=== PATIENT | male | born 1950 | race Caucasian/White ===

== ENCOUNTER → 2017-05-02 | Outpatient (CLI) | payer OTHER ==
[~2017-05-02] MED LIST: ASPIR LOW81 MG PO; CLOTRIMAZOLE AN1 CRE T; DOC-Q-LACE100 MG PO; FISH OIL 10001000 MG PO; GABAPENTIN100 MG PO; GLIPIZIDE5 MG PO; GRALISE300 M1 PO; LANTUS100 U/ML SQ; LISINOPRIL5 MG PO; LOVASTATIN10 MG PO; METFORMIN1000 MG PO; MOTRIN800 MG PO; PRILOSEC40 MG PO; VICTOZA6 MG/ML SC; ZANTAC150 MG PO
== END | disposition home or self-care (01) ==
LOC: LAB 10:45
DX: R53.83 Other fatigue (principal); R79.89 Other specified abnormal findings of blood chemistry

== ENCOUNTER 2017-07-30 20:15 | Inpatient (IN) | payer OTHER ==
[~2017-07-30] VITALS: Ht 177.8 cm; Wt 115.7 kg
[2017-07-30 20:18] VITALS: BP 128/82
[2017-07-30] MEDS ORDERED: INVOKANA300 M1 PO (20:19)
[2017-07-30] MEDS ORDERED: LOPRESSOR HCT1 EACH PO (20:19)
[2017-07-30] MEDS ORDERED: FEROSUL325 MG PO (20:20)
[2017-07-30] MEDS ORDERED: GLIPIZIDE10 M2 PO (20:21)
[2017-07-30] MEDS ORDERED: SIMVASTATIN20 MG PO (20:22)
[2017-07-30] MEDS ORDERED: LISINOPRIL2.5 MG PO (20:23)
[2017-07-30 21:00] VITALS: BP 144/87
[2017-07-30 21:28] LABS: BASO % 0.3 % (0.0-1.0); EOS # 0.2 10*3/uL (0.0-0.4); EOS % 1.4 % (1.0-4.0); HEMATOCRIT 54.1 % (42.0-52.0); HEMOGLOBIN 17.8 g/dl (14.0-18.0); LYMPH # 1.5 10*3/uL (1.3-4.4); LYMPH % 12.6 % (27.0-41.0); MEAN CELL VOLUME 89.6 fl (80.0-94.0); MEAN CORPUSCULAR HGB 29.5 pg (27.0-31.0); MEAN CORPUSCULAR HGB CONC 32.9 g/dl (33.0-37.0); MEAN PLATELET VOLUME 10.5 fl (9.6-12.3); MONO % 8.4 % (3.0-9.0); PLATELET COUNT AUTOMATED 211 10*3/uL (130-400); RED BLOOD COUNT 6.04 10*6/uL (4.50-5.90); RED CELL DISTRI WIDTH 17.5 % (0-14.5); WHITE BLOOD COUNT 11.6 10*3/uL (4.8-10.8)
[2017-07-30 21:50] LABS: ALBUMIN 4.2 gm/dl (3.1-4.5); ALKALINE PHOSPHATASE 48 U/L (45-117); BUN 21 mg/dl (7-24); CHLORIDE 97 mmol/L (98-107); CREATININE 1.48 mg/dL (0.70-1.30); LIPASE 155 U/L (73-393); POTASSIUM 3.4 mmol/L (3.5-5.1); SGOT/AST 15 IU/L (3-35); SGPT/ALT 32 U/L (12-78); SODIUM 134 mmol/L (136-145); TOTAL PROTEIN 8.2 gm/dL (6.4-8.2); TROPONIN I < 0.015 ng/ml (<0.045)
[2017-07-30 22:10] LABS: BILIRUBIN NEGATIVE (NEGATIVE); BLOOD NEGATIVE (NEGATIVE); CLARITY SL CLOUDY (CLEAR); COLOR YELLOW (YELLOW); GLUCOSE 3+ (NEGATIVE); KETONE TRACE (NEGATIVE); LEUKO ESTERASE NEGATIVE (NEGATIVE); NITRITE NEGATIVE (NEGATIVE); PH 5.5 (5.0-9.0); SPECIFIC GRAVITY 1.015 (1.005-1.030); UROBILINOGEN 0.2 E.U./dl (0.2-1.0)
[2017-07-30 22:18] LABS: BACTERIA 1+; COARSE GRANULAR CAST 0-2; EPITHELIAL CELLS 0-2; RBC 0-2 rbc/hpf (0-2)
[2017-07-30 22:30] VITALS: BP 138/79
[2017-07-30 23:30] VITALS: BP 129/75
[2017-07-31] VITALS: BP 128/80
[2017-07-31 01:59] VITALS: BP 144/88
[2017-07-31] MEDS ORDERED: CETIRIZINE HCL10 MG PO (02:32)
[2017-07-31 05:55] LABS: BASO % 0.4 % (0.0-1.0); EOS # 0.2 10*3/uL (0.0-0.4); HEMATOCRIT 49.6 % (42.0-52.0); HEMOGLOBIN 16.6 g/dl (14.0-18.0); LYMPH # 1.6 10*3/uL (1.3-4.4); LYMPH % 16.9 % (27.0-41.0); MEAN CELL VOLUME 90.7 fl (80.0-94.0); MEAN CORPUSCULAR HGB 30.3 pg (27.0-31.0); MEAN CORPUSCULAR HGB CONC 33.5 g/dl (33.0-37.0); MEAN PLATELET VOLUME 10.2 fl (9.6-12.3); MONO % 10.5 % (3.0-9.0); NEUT # 6.6 10*3/uL (2.3-7.9); NEUT % 69.9 % (47.0-73.0); PLATELET COUNT AUTOMATED 177 10*3/uL (130-400); RED BLOOD COUNT 5.47 10*6/uL (4.50-5.90); RED CELL DISTRI WIDTH 17.5 % (0-14.5); WHITE BLOOD COUNT 9.5 10*3/uL (4.8-10.8)
[2017-07-31 06:13] LABS: BUN 20 mg/dl (7-24); CHLORIDE 103 mmol/L (98-107); CHOLESTEROL 110 mg/dL (<200); CREATININE 1.33 mg/dL (0.70-1.30); HDL CHOLESTEROL 19 mg/dl (40-60); LDL CHOLESTEROL 29 mg/dL (9-159); PHOSPHOROUS 2.3 mg/dL (2.5-4.9); POTASSIUM 3.1 mmol/L (3.5-5.1); SODIUM 140 mmol/L (136-145); TRIGLYCERIDES 308 mg/dl (<150); VLDL CHOLESTEROL 62 mg/dL (6-40)
[2017-07-31 07:00] LABS: VITAMIN D, 25-HYDROXY 8.6 ng/mL (30-100)
[2017-07-31 08:00] VITALS: BP 106/64
[2017-07-31 12:00] VITALS: BP 119/62
[2017-07-31 16:00] VITALS: BP 127/69
[2017-07-31 19:54] VITALS: BP 129/63
[2017-08-01 00:04] VITALS: BP 120/51
[2017-08-01 07:24] LABS: BASO % 0.5 % (0.0-1.0); EOS # 0.3 10*3/uL (0.0-0.4); EOS % 3.4 % (1.0-4.0); HEMATOCRIT 48.5 % (42.0-52.0); HEMOGLOBIN 16.2 g/dl (14.0-18.0); LYMPH # 1.3 10*3/uL (1.3-4.4); LYMPH % 17.6 % (27.0-41.0); MEAN CELL VOLUME 91.3 fl (80.0-94.0); MEAN CORPUSCULAR HGB 30.5 pg (27.0-31.0); MEAN CORPUSCULAR HGB CONC 33.4 g/dl (33.0-37.0); MEAN PLATELET VOLUME 10.4 fl (9.6-12.3); MONO # 0.7 10*3/uL (0.1-1.0); MONO % 9.4 % (3.0-9.0); NEUT # 5.2 10*3/uL (2.3-7.9); NEUT % 68.7 % (47.0-73.0); PLATELET COUNT AUTOMATED 177 10*3/uL (130-400); RED BLOOD COUNT 5.31 10*6/uL (4.50-5.90); RED CELL DISTRI WIDTH 17.4 % (0-14.5); WHITE BLOOD COUNT 7.6 10*3/uL (4.8-10.8)
[2017-08-01 07:47] LABS: BUN 15 mg/dl (7-24); CHLORIDE 104 mmol/L (98-107); CREATININE 1.15 mg/dL (0.70-1.30); POTASSIUM 3.8 mmol/L (3.5-5.1); SODIUM 139 mmol/L (136-145)
[2017-08-01 08:00] VITALS: BP 128/76
[2017-08-01 12:00] VITALS: BP 138/64
[2017-08-01 16:00] VITALS: BP 160/80
[2017-08-01 20:00] VITALS: BP 161/75
[2017-08-02] VITALS: BP 153/71
[2017-08-02 07:10] LABS: BUN 16 mg/dl (7-24); CHLORIDE 103 mmol/L (98-107); CREATININE 1.25 mg/dL (0.70-1.30); SODIUM 137 mmol/L (136-145)
[2017-08-02 08:00] VITALS: BP 125/59
== END 2017-08-02 11:06 | disposition home or self-care (01) | DRG 371 ==
LOC: ED 20:15 → 4E 07-31 00:56 → EDHOLD 07-31 00:56 → 4E 07-31 01:02
PROVIDERS: Emergency Medicine Emergency Medical Services; Internal Medicine; Student in an Organized Health Care Education/Training Program
DX: A04.9 Bacterial intestinal infection, unspecified (principal); N17.0 Acute kidney failure with tubular necrosis; N18.2 Chronic kidney disease, stage 2 (mild); E87.6 Hypokalemia; E11.65 Type 2 diabetes mellitus with hyperglycemia; I25.10 Atherosclerotic heart disease of native coronary artery without angina pectoris; E11.69 Type 2 diabetes mellitus with other specified complication; E11.49 Type 2 diabetes mellitus with other diabetic neurological complication; D72.810 Lymphocytopenia; E87.8 Other disorders of electrolyte and fluid balance, not elsewhere classified; I12.9 Hypertensive chronic kidney disease with stage 1 through stage 4 chronic kidney disease, or unspecified chronic kidney disease; E11.22 Type 2 diabetes mellitus with diabetic chronic kidney disease; K21.9 Gastro-esophageal reflux disease without esophagitis; E66.9 Obesity, unspecified; E78.5 Hyperlipidemia, unspecified; Z79.899 Other long term (current) drug therapy; Z90.49 Acquired absence of other specified parts of digestive tract; Z95.1 Presence of aortocoronary bypass graft; Z95.5 Presence of coronary angioplasty implant and graft; Z80.6 Family history of leukemia; Z71.6 Tobacco abuse counseling; Z72.0 Tobacco use; Z82.49 Family history of ischemic heart disease and other diseases of the circulatory system; Z83.3 Family history of diabetes mellitus; Z82.3 Family history of stroke; Z88.8 Allergy status to other drugs, medicaments and biological substances; Z79.82 Long term (current) use of aspirin; Z87.820 Personal history of traumatic brain injury; Z68.36 Body mass index [BMI] 36.0-36.9, adult

== ENCOUNTER 2017-08-23 06:53 | Inpatient (IN) | payer OTHER ==
[2017-08-23] VITALS (10 sets, daily range): BP systolic 94–113; BP diastolic 51–68
[~2017-08-23] VITALS: Ht 180.3 cm; Wt 110.4 kg
--- NOTE | ~2017-08-23 | CON ---
[place], [place] REPORT OF CONSULTATION NAME[id number] UNIT #: [id number] ROOM: 403 DOCTOR: MARGARITA LANZA MDLORELEIITALIA BIRTHDATE: [birth year] DOS: 08/23/2017 HISTORY OF PRESENT ILLNESS: A 67-year-old patient who has presented with chief complaint of abdominal pain, epigastric distress, diarrhea, dark stool and suspected with GI bleed. The patient has had a panel of blood work done. His CBC shows white blood cell was 19,000, H and H of 16 and 48, platelet count normal. Comprehensive metabolic panel: BUN and creatinine 15 and 1.5. Electrolyte, potassium of 3.0 has been addressed. Liver function tests normal. Magnesium 1.8, has been addressed. CT scan of the abdomen and pelvis has been done, suspected for mild colitis diffusely involved left colon. Air space disease in the lungs. Lactic acid was normal. Urinalysis 3+ glucose and trace of blood was noticed. PAST MEDICAL HISTORY: Associated with chronic renal insufficiency, coronary artery disease, diabetes history, diarrhea, gastroesophageal reflux, hypertension, hyperlipidemia. PAST SURGICAL HISTORY: Coronary stent, hernia repair, coronary artery bypass graft, appendectomy. SOCIAL HISTORY: Nicotine dependency. FAMILY HISTORY: Noncontributory. ALLERGIES: CLOPIDOGREL. MEDICATIONS: List at home was reviewed including aspirin and omeprazole. Other medications reviewed. REVIEW OF SYSTEMS: HEENT: Denies double vision, blurred vision. RESPIRATORY: Denies acute shortness of breath. CARDIOVASCULAR: Denies acute chest pain. DIGESTIVE SYSTEM: Nausea, dark stool, diarrhea, abdominal pain, epigastric distress, history of GERD. PHYSICAL EXAMINATION: VITAL SIGNS: Stable. HEENT: Head normocephalic, nontraumatic. Mouth and buccal mucosa benign. NECK: Supple, no thyromegaly, no cervical lymphadenopathy. CHEST: Symmetric anatomy, equal expansion. No wheeze, no rhonchi. COPD pattern. HEART: Normal sinus rhythm, no gallop or murmur. ABDOMEN: Soft. No hepato-organomegaly. Bowel sounds present. No pulsatile mass. EXTREMITIES: No cyanosis, no pedal edema. NEUROLOGIC: Alert, oriented to time, place, person. IMPRESSION: Abdominal pain, nausea, vomiting, diarrhea. [place], [place] REPORT OF CONSULTATION NAME: ALBERTO BENEDICT UNIT #: [id number] ROOM: 403 DOCTOR: MYLA FLYNN,KIRSTEN BIRTHDATE: [birth year] OTHER ADJUNCTIVE DIAGNOSES: As outlined above. The patient has the history of bowel perforation in 1978 that has been recognized. The patient has had diarrhea for one month. The stool is being assessed. Other adjunctive diagnoses, renal insufficiency, coronary artery disease, hypertension, diabetes mellitus and hyperlipidemia all has been recognized. Workup in progress. CT scan of the abdomen noticed. We are going to check to assure there is no evidence of colitis as well. We are going to address with endoscopy of upper tract ruling out diabetic gastroparesis and its involvement as well. Thank you again for kind referral. KIRSTEN LANZA MD CM:CONSTR:REPORT OF CONSULTATION 1532 08/24/17 0210 interface
--- NOTE | ~2017-08-23 | O ---
[place], [place] OPERATIVE NOTE NAME: ALBERTO BENEDICT UNIT #: [id number] ROOM: 403 DOCTOR: KIRSTEN LANZA MD BIRTHDATE: [birth year] DOS: 08/23/2017 GASTROENDOSCOPIC REPORT INDICATIONS: The patient has presented with chief complaint of abdominal pain, diarrhea for one month, undergoing investigation. The patient's stool was sent for ova and parasite and enteric pathogen. Labs and records and CT scan has been reviewed. CT scan has been consistent with unspecific colitis as well. PROCEDURE: Today's procedure part of investigation is panendoscopy and colonoscopy. PREMEDICATION: Versed and Diprivan. SCOPE: Olympus forward-viewing gastroscope Q10 video. REPORT: After putting the patient in left lateral position and application of lubricant to the scope, the scope was introduced. Thereafter, under direct visualization, advanced through the length of esophagus without difficulty. 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 Small hiatal hernia was noticed. Gastric pouch was entered. Gastritis seen. Antral biopsy obtained. Duodenal bulb, second and third part within normal limits. The patient extubated, tolerated the procedure well. IMPRESSION: Gastritis, short segment Sanders esophagus, status post biopsy. PLAN AND DISCUSSION: We are going to proceed with colonoscopy. GASTROENDOSCOPIC REPORT INDICATIONS: The patient has presented with abdominal pain and diarrhea. PROCEDURE: Today's procedure part of investigation is colonoscopy plus biopsy. PREMEDICATION: Versed and Diprivan. SCOPE: Olympus folding colonoscope 10L video. REPORT: After putting the patient in left lateral position and application of lubricant to the scope, the scope was introduced. Thereafter, under direct visualization, I advanced the length of colon without difficulty. Nonspecific mild colitis throughout the length of colon was appreciated. Ascending colon contains large volume of stool. Biopsies randomly obtained. The patient was extubated, tolerated procedure well. IMPRESSION: Mild nonspecific colitis, status post biopsy, status post stool suctioning and recovery for ova and parasite and enteric pathogens and C. diff [place], [place] OPERATIVE NOTE NAME: ALBERTO BENEDICT UNIT #: [id number] ROOM: 403 DOCTOR: KIRSTEN LANZA MD BIRTHDATE: [birth year] and clinical reassessment. DIET: Regular. KIRSTEN LANZA MD CM:SHAYNAORD:OPERATIVE NOTE 01 41 KIRSTEN LANZA MD 08/23/171940 interface
[~2017-08-23 06:53] MED LIST changes: +CETIRIZINE HCL10 MG PO; +FEROSUL325 MG PO; +GLIPIZIDE10 M2 PO; +INVOKANA300 M1 PO; +LANTUS SOL100 UNIT/1 SQ; -LANTUS100 U/ML SQ; +LISINOPRIL2.5 MG PO; +LOPRESSOR HCT1 EACH PO; +SIMVASTATIN20 MG PO; +VICTOZA 2-0.6 MG/0.1 SQ; -VICTOZA6 MG/ML SC
[2017-08-23 08:02] LABS: HEMATOCRIT 48.5 % (42.0-52.0); HEMOGLOBIN 16.8 g/dl (14.0-18.0); MEAN CELL VOLUME 87.7 fl (80.0-94.0); MEAN CORPUSCULAR HGB 30.4 pg (27.0-31.0); MEAN CORPUSCULAR HGB CONC 34.6 g/dl (33.0-37.0); MEAN PLATELET VOLUME 9.5 fl (9.6-12.3); PLATELET COUNT AUTOMATED 240 10*3/uL (130-400); RED BLOOD COUNT 5.53 10*6/uL (4.50-5.90); RED CELL DISTRI WIDTH 14.2 % (0-14.5)
[2017-08-23 08:18] LABS: ALBUMIN 3.3 gm/dl (3.1-4.5); CREATININE 1.53 mg/dL (0.70-1.30); TOTAL PROTEIN 7.4 gm/dL (6.4-8.2)
[2017-08-23 08:21] LABS: ATYPICAL LYMPHS 1 % (0-0); TOTAL CELLS COUNTED 100 #CELLS
[2017-08-23 08:22] LABS: PLATELET SUFFICIENCY NORMAL (NORMAL)
[2017-08-23 09:40] LABS: BILIRUBIN NEGATIVE (NEGATIVE); BLOOD TRACE-INTACT (NEGATIVE); CLARITY SL CLOUDY (CLEAR); COLOR YELLOW (YELLOW); GLUCOSE 3+ (NEGATIVE); KETONE NEGATIVE (NEGATIVE); LEUKO ESTERASE NEGATIVE (NEGATIVE); NITRITE NEGATIVE (NEGATIVE); PH 6.5 (5.0-9.0); SPECIFIC GRAVITY <= 1.005 (1.005-1.030); UROBILINOGEN 0.2 E.U./dl (0.2-1.0)
[2017-08-23 09:52] LABS: BACTERIA TRACE; RBC 0-2 rbc/hpf (0-2); WBC 0-2 wbc/hpf (0-5)
[2017-08-24] VITALS: BP 101/63
[2017-08-24 07:14] LABS: BASO # 0.1 10*3/uL (0.0-0.1); BASO % 0.6 % (0.0-1.0); EOS # 0.3 10*3/uL (0.0-0.4); EOS % 2.6 % (1.0-4.0); HEMATOCRIT 45.4 % (42.0-52.0); HEMOGLOBIN 15.9 g/dl (14.0-18.0); LYMPH # 1.1 10*3/uL (1.3-4.4); MEAN CELL VOLUME 88.3 fl (80.0-94.0); MEAN CORPUSCULAR HGB 30.9 pg (27.0-31.0); MONO # 1.1 10*3/uL (0.1-1.0); MONO % 10.8 % (3.0-9.0); NEUT # 7.4 10*3/uL (2.3-7.9); NEUT % 74.5 % (47.0-73.0); PLATELET COUNT AUTOMATED 209 10*3/uL (130-400); RED BLOOD COUNT 5.14 10*6/uL (4.50-5.90); RED CELL DISTRI WIDTH 14.2 % (0-14.5); WHITE BLOOD COUNT 9.9 10*3/uL (4.8-10.8)
[2017-08-24 07:34] LABS: BUN 13 mg/dl (7-24); CHLORIDE 100 mmol/L (98-107); CHOLESTEROL 94 mg/dL (<200); CREATININE 1.14 mg/dL (0.70-1.30); PHOSPHOROUS 2.3 mg/dL (2.5-4.9); POTASSIUM 3.1 mmol/L (3.5-5.1); SGOT/AST 17 IU/L (3-35); SGPT/ALT 31 U/L (12-78); SODIUM 135 mmol/L (136-145)
[2017-08-24 07:41] LABS: ALKALINE PHOSPHATASE 65 U/L (45-117); HDL CHOLESTEROL 19 mg/dl (40-60); LDL CHOLESTEROL 49 mg/dL (9-159); TOTAL PROTEIN 6.8 gm/dL (6.4-8.2); TRIGLYCERIDES 129 mg/dl (<150); VLDL CHOLESTEROL 26 mg/dL (6-40)
[2017-08-24 08:00] VITALS: BP 108/55
[2017-08-24 08:23] LABS: VITAMIN D, 25-HYDROXY 19.4 ng/mL (30-100)
[2017-08-24 12:00] VITALS: BP 91/68
[2017-08-24 16:00] VITALS: BP 98/50
[2017-08-24 20:00] VITALS: BP 113/56
[2017-08-25] VITALS: BP 120/59
[2017-08-25 07:35] LABS: BASO # 0.1 10*3/uL (0.0-0.1); BASO % 0.5 % (0.0-1.0); EOS # 0.3 10*3/uL (0.0-0.4); EOS % 3.4 % (1.0-4.0); HEMATOCRIT 44.9 % (42.0-52.0); HEMOGLOBIN 14.9 g/dl (14.0-18.0); LYMPH # 1.2 10*3/uL (1.3-4.4); LYMPH % 12.9 % (27.0-41.0); MEAN CELL VOLUME 89.4 fl (80.0-94.0); MEAN CORPUSCULAR HGB 29.7 pg (27.0-31.0); MEAN CORPUSCULAR HGB CONC 33.2 g/dl (33.0-37.0); MEAN PLATELET VOLUME 10.3 fl (9.6-12.3); MONO % 10.8 % (3.0-9.0); NEUT # 6.6 10*3/uL (2.3-7.9); PLATELET COUNT AUTOMATED 227 10*3/uL (130-400); RED BLOOD COUNT 5.02 10*6/uL (4.50-5.90); RED CELL DISTRI WIDTH 14.1 % (0-14.5); WHITE BLOOD COUNT 9.1 10*3/uL (4.8-10.8)
[2017-08-25 08:00] VITALS: BP 128/64
[2017-08-25 08:01] LABS: BUN 14 mg/dl (7-24); CHLORIDE 104 mmol/L (98-107); CREATININE 1.28 mg/dL (0.70-1.30); POTASSIUM 3.1 mmol/L (3.5-5.1); SODIUM 140 mmol/L (136-145)
[2017-08-25] MEDS ORDERED: VITAMIN D-32000 UNIT PO (08:14)
[2017-08-25 12:00] VITALS: BP 97/69
[2017-08-25 16:00] VITALS: BP 115/58
[2017-08-25 20:00] VITALS: BP 92/64
[2017-08-26] VITALS: BP 105/45
[2017-08-26 06:21] LABS: BASO # 0.1 10*3/uL (0.0-0.1); EOS # 0.4 10*3/uL (0.0-0.4); EOS % 4.3 % (1.0-4.0); HEMATOCRIT 44.3 % (42.0-52.0); HEMOGLOBIN 15.1 g/dl (14.0-18.0); LYMPH # 1.3 10*3/uL (1.3-4.4); LYMPH % 15.8 % (27.0-41.0); MEAN CELL VOLUME 89.9 fl (80.0-94.0); MEAN CORPUSCULAR HGB 30.6 pg (27.0-31.0); MEAN CORPUSCULAR HGB CONC 34.1 g/dl (33.0-37.0); MEAN PLATELET VOLUME 10.5 fl (9.6-12.3); MONO % 11.3 % (3.0-9.0); NEUT # 5.7 10*3/uL (2.3-7.9); NEUT % 67.2 % (47.0-73.0); PLATELET COUNT AUTOMATED 232 10*3/uL (130-400); RED BLOOD COUNT 4.93 10*6/uL (4.50-5.90); RED CELL DISTRI WIDTH 14.1 % (0-14.5); WHITE BLOOD COUNT 8.4 10*3/uL (4.8-10.8)
[2017-08-26 06:45] LABS: ALBUMIN 2.9 gm/dl (3.1-4.5); ALKALINE PHOSPHATASE 67 U/L (45-117); BUN 13 mg/dl (7-24); CHLORIDE 104 mmol/L (98-107); POTASSIUM 3.2 mmol/L (3.5-5.1); SGOT/AST 19 IU/L (3-35); SGPT/ALT 34 U/L (12-78); SODIUM 140 mmol/L (136-145); TOTAL PROTEIN 6.4 gm/dL (6.4-8.2)
[2017-08-26 08:00] VITALS: BP 134/86
[2017-08-26 12:00] VITALS: BP 121/64
[2017-08-26] MEDS ORDERED: VANCOMYCIN250 MG/2.5 PO (12:35)
[2017-08-26 16:00] VITALS: BP 122/56
[2017-08-26 20:00] VITALS: BP 148/72
[2017-08-27] VITALS: BP 137/79
[2017-08-27 08:00] VITALS: BP 119/60
[2017-08-27 09:55] LABS: BUN 11 mg/dl (7-24); CHLORIDE 106 mmol/L (98-107)
[2017-08-27 10:06] LABS: SODIUM 139 mmol/L (136-145)
[2017-08-27 10:09] LABS: POTASSIUM 4.4 mmol/L (3.5-5.1)
[2017-08-27] MEDS ORDERED: LACTINEX 0.2 MG1 TAB PO (11:51)
[2017-08-27] MEDS ORDERED: DOXYCYCLINE MO100 M1 PO (11:51)
[2017-08-27] MEDS ORDERED: KLOR-CON M2020 ME1 PO (11:51)
== END 2017-08-27 14:53 | disposition home or self-care (01) | DRG 371 ==
LOC: ED 06:53 → 4E 10:46 → EDHOLD 10:46 → 4E 11:09
PROVIDERS: Emergency Medicine; Hospitalist; Internal Medicine
PROC: 0DB68ZX Excision of Stomach, Via Natural or Artificial Opening Endoscopic, Diagnostic (ICD-10-PCS; principal; 2017-08-23)
PROC: 0DBK8ZX Excision of Ascending Colon, Via Natural or Artificial Opening Endoscopic, Diagnostic (ICD-10-PCS; principal; 2017-08-23)
PROC: 0DB58ZX Excision of Esophagus, Via Natural or Artificial Opening Endoscopic, Diagnostic (ICD-10-PCS; principal; 2017-08-23)
DX: A04.72 Enterocolitis due to Clostridium difficile, not specified as recurrent (principal); N17.0 Acute kidney failure with tubular necrosis; J18.1 Lobar pneumonia, unspecified organism; I25.810 Atherosclerosis of coronary artery bypass graft(s) without angina pectoris; E83.39 Other disorders of phosphorus metabolism; K29.71 Gastritis, unspecified, with bleeding; E87.1 Hypo-osmolality and hyponatremia; E11.22 Type 2 diabetes mellitus with diabetic chronic kidney disease; E11.42 Type 2 diabetes mellitus with diabetic polyneuropathy; E11.65 Type 2 diabetes mellitus with hyperglycemia; E87.8 Other disorders of electrolyte and fluid balance, not elsewhere classified; E87.6 Hypokalemia; N18.2 Chronic kidney disease, stage 2 (mild); F17.210 Nicotine dependence, cigarettes, uncomplicated; K21.9 Gastro-esophageal reflux disease without esophagitis; D72.9 Disorder of white blood cells, unspecified; E78.2 Mixed hyperlipidemia; K44.9 Diaphragmatic hernia without obstruction or gangrene; K22.70 Barrett's esophagus without dysplasia; I12.9 Hypertensive chronic kidney disease with stage 1 through stage 4 chronic kidney disease, or unspecified chronic kidney disease; E11.69 Type 2 diabetes mellitus with other specified complication; E66.9 Obesity, unspecified; Z68.36 Body mass index [BMI] 36.0-36.9, adult; Z71.6 Tobacco abuse counseling; Z88.8 Allergy status to other drugs, medicaments and biological substances; Z79.899 Other long term (current) drug therapy; Z90.49 Acquired absence of other specified parts of digestive tract; Z95.1 Presence of aortocoronary bypass graft; Z95.5 Presence of coronary angioplasty implant and graft; Z82.3 Family history of stroke; Z83.3 Family history of diabetes mellitus; Z82.49 Family history of ischemic heart disease and other diseases of the circulatory system; Z79.82 Long term (current) use of aspirin

== ENCOUNTER → 2019-04-01 | Outpatient (CLI) | payer OTHER ==
[~2019-04-01] MED LIST changes: +DOXYCYCLINE MO100 M1 PO; +KLOR-CON M2020 ME1 PO; +LACTINEX 0.2 MG1 TAB PO; +VANCOMYCIN250 MG/2.5 PO; +VITAMIN D-32000 UNIT PO
== END | disposition home or self-care (01) ==
LOC: RAD 12:50
DX: M20.12 Hallux valgus (acquired), left foot (principal)

== ENCOUNTER → 2019-06-19 | Outpatient (CLI) | payer OTHER | END | disposition home or self-care (01) | LOC: US 13:59 | DX: K76.0 Fatty (change of) liver, not elsewhere classified (principal); M16.11 Unilateral primary osteoarthritis, right hip; M16.12 Unilateral primary osteoarthritis, left hip ==

== ENCOUNTER 2019-11-02 21:39 | Inpatient (IN) | payer OTHER ==
[~2019-11-02] VITALS: Ht 180.3 cm; Wt 121.7 kg
[~2019-11-02 21:39] MED LIST changes: +PRILOSEC20 M1 PO; -PRILOSEC40 MG PO
[2019-11-02 21:43] VITALS: BP 148/82
[2019-11-02 21:57] LABS: BASO # 0.1 10*3/uL (0.0-0.1); BASO % 0.7 % (0.0-1.0); EOS # 0.3 10*3/uL (0.0-0.4); HEMATOCRIT 44.4 % (42.0-52.0); LYMPH # 1.7 10*3/uL (1.3-4.4); LYMPH % 16.4 % (27.0-41.0); MEAN CELL VOLUME 83.8 fl (80.0-94.0); MEAN CORPUSCULAR HGB 27.2 pg (27.0-31.0); MEAN CORPUSCULAR HGB CONC 32.4 g/dl (33.0-37.0); MEAN PLATELET VOLUME 10.5 fl (9.6-12.3); MONO # 1.1 10*3/uL (0.1-1.0); MONO % 10.2 % (3.0-9.0); NEUT # 7.3 10*3/uL (2.3-7.9); NEUT % 69.1 % (47.0-73.0); PLATELET COUNT AUTOMATED 242 10*3/uL (130-400); RED CELL DISTRI WIDTH 16.8 % (0-14.5); WHITE BLOOD COUNT 10.5 10*3/uL (4.8-10.8)
[2019-11-02 22:07] LABS: ACT PARTIAL THROMBO TIME 36.7 SECONDS (20.0-32.1); INTERNATIONAL NORM RATIO 0.9 (2.0-3.5)
[2019-11-02 22:15] LABS: ALBUMIN 3.5 gm/dl (3.1-4.5); ALKALINE PHOSPHATASE 49 U/L (45-117); BUN 29 mg/dl (7-24); CHLORIDE 102 mmol/L (98-107); CREATININE 1.44 mg/dL (0.70-1.30); POTASSIUM 3.5 mmol/L (3.5-5.1); SGOT/AST 15 IU/L (3-35); SGPT/ALT 30 U/L (12-78); SODIUM 135 mmol/L (136-145); TOTAL PROTEIN 7.4 gm/dL (6.4-8.2)
[2019-11-02 22:16] LABS: TROPONIN I < 0.015 ng/ml (<0.045)
[2019-11-02 23:45] VITALS: BP 129/65
--- NOTE | 2019-11-02 23:45 | NUR ---
A 69, admitted to , under the services of EMILI Nicholson DO with a diagnosis of CHEST PAIN. Chief complaint is CHEST PAIN. Patient arrived via stretcher from ER. Monitor applied. Initial assessment completed. Vital signs taken and recorded. EMILI NICHOLSON DO notified of admission to the unit. Orders received. See assessment for past medical history, medications and allergies. Patient and/or family oriented to unit. [facility] visitation policy reviewed. Clothing/patient valuable form completed. LILIAN HUTCHINSON
[2019-11-02 23:57] VITALS: BP 134/78
[2019-11-03] MEDS ORDERED: TRULICITY1.5 MG/0.5 SC (00:06)
[2019-11-03] MEDS ORDERED: DULCOLAX STOOL100 M1 PO (00:07)
--- NOTE | 2019-11-03 00:17 | NUR ---
MED REC COMPLETED WITH MEDS FROM HOME AND PATIENT. DENIES WOUNDS AT THIS TIME
--- NOTE | 2019-11-03 00:19 | NUR ---
DR HARDY AWARE OF PATIENT REQUESTING HOME NEURONTIN. ORDER TAKEN TO START IT
--- NOTE | 2019-11-03 00:51 | NUR ---
DR WARD'S ANSWERING SERVICE AWARE OF CONSULT
--- NOTE | 2019-11-03 01:12 | NUR ---
CALLED DR. HARDY MADE AWARE OF CRITICAL TROPONIN.
--- NOTE | 2019-11-03 01:36 | NUR ---
PATIENT CONTINUES TO DENY CHEST PAIN AND SHORTNESS OF BREATH AT THIS TIME
[2019-11-03 04:07] LABS: BASO # 0.1 10*3/uL (0.0-0.1); BASO % 0.5 % (0.0-1.0); EOS # 0.3 10*3/uL (0.0-0.4); EOS % 2.8 % (1.0-4.0); LYMPH # 1.8 10*3/uL (1.3-4.4); LYMPH % 18.2 % (27.0-41.0); MEAN CORPUSCULAR HGB 26.9 pg (27.0-31.0); MEAN PLATELET VOLUME 10.5 fl (9.6-12.3); MONO % 10.3 % (3.0-9.0); NEUT # 6.5 10*3/uL (2.3-7.9); NEUT % 67.7 % (47.0-73.0); PLATELET COUNT AUTOMATED 265 10*3/uL (130-400); RED BLOOD COUNT 5.36 10*6/uL (4.50-5.90); RED CELL DISTRI WIDTH 16.9 % (0-14.5); WHITE BLOOD COUNT 9.7 10*3/uL (4.8-10.8)
[2019-11-03 04:20] LABS: BUN 28 mg/dl (7-24); CHLORIDE 105 mmol/L (98-107); CREATININE 1.24 mg/dL (0.70-1.30); POTASSIUM 3.3 mmol/L (3.5-5.1); SODIUM 138 mmol/L (136-145)
[2019-11-03 04:25] LABS: CHOLESTEROL 122 mg/dL (<200); HDL CHOLESTEROL 17 mg/dl (40-60); TRIGLYCERIDES 404 mg/dl (<150)
--- NOTE | 2019-11-03 04:29 | NUR ---
DR HARDY AWARE OF CRITICAL TROPONIN. STATES HE WILL LET DR WARD KNOW
[2019-11-03 07:03] LABS: VITAMIN D, 25-HYDROXY 19.2 ng/mL (30-100)
--- NOTE | 2019-11-03 07:15 | NUR ---
MEDS FROM HOME DELIVERED TO PHARMACY
[2019-11-03 08:00] VITALS: BP 108/62
--- NOTE | 2019-11-03 09:30 | NUR ---
Handle Turner in to talk to patient. Patient states lives at home with alone. There are no steps in the home. Physician: parrish olea [facility]acy: [facility] Home health services: none Patient's level of ADLs: INDEPENDENT Patient has working utilities: all working DME: cane Follow-up physician's appointment after d/c: will be made by hospitalist nurse director upon discharge Does patient want to access PORTAL?: no Discharge plan discussed with patient, he states he lives in [facility] apartments alone, he lives on the 8th floor and uses the elevator. he has a cane if needed. he is independent in adls and ambulation, drives, he states he will return home when medically stable. discussed with him [facility] and educated him on the services they provide. he declined any home services at this time, case management will follow. patient stated his family will transport home when he is discharged KERMIT PALOMINO
--- NOTE | 2019-11-03 10:00 | NUR ---
AM MEDS HELD DUE TO NPO STATUS. STILL WAITING ON CARDIOLOGY TO SEE PATIENT.
[2019-11-03 12:00] VITALS: BP 109/65
--- NOTE | 2019-11-03 14:00 | NUR ---
CARDIOLOGY IN TO SEE PATIENT AND INFORMED OF STRESS TEST FOR TOMORROW. PATIENT AWARE OF NPO AFTER MIDNIGHT TONIGHT.
[2019-11-03 16:00] VITALS: BP 127/54
[2019-11-03 20:00] VITALS: BP 109/52
--- NOTE | 2019-11-03 20:31 | NUR ---
DR HARDY AWARE OF BLOOD PRESSURE AND HEART RATE. STATES TO GIVE THE SCHEDULED LOPRESSOR
--- NOTE | 2019-11-03 21:28 | NUR ---
BLOOD SUGAR CHECK 194
[2019-11-04] VITALS: BP 117/61
[2019-11-04 06:18] LABS: BASO # 0.1 10*3/uL (0.0-0.1); BASO % 0.6 % (0.0-1.0); EOS # 0.3 10*3/uL (0.0-0.4); EOS % 3.4 % (1.0-4.0); HEMATOCRIT 40.9 % (42.0-52.0); LYMPH # 1.7 10*3/uL (1.3-4.4); LYMPH % 20.9 % (27.0-41.0); MEAN CELL VOLUME 84.3 fl (80.0-94.0); MEAN CORPUSCULAR HGB 26.4 pg (27.0-31.0); MEAN CORPUSCULAR HGB CONC 31.3 g/dl (33.0-37.0); MEAN PLATELET VOLUME 10.7 fl (9.6-12.3); MONO # 0.9 10*3/uL (0.1-1.0); MONO % 11.6 % (3.0-9.0); PLATELET COUNT AUTOMATED 209 10*3/uL (130-400); RED BLOOD COUNT 4.85 10*6/uL (4.50-5.90); RED CELL DISTRI WIDTH 16.7 % (0-14.5); WHITE BLOOD COUNT 7.9 10*3/uL (4.8-10.8)
[2019-11-04 06:26] LABS: BUN 23 mg/dl (7-24); CHLORIDE 106 mmol/L (98-107); CREATININE 1.27 mg/dL (0.70-1.30); POTASSIUM 3.9 mmol/L (3.5-5.1); SODIUM 138 mmol/L (136-145)
[2019-11-04 08:00] VITALS: BP 102/52; BP 122/51
--- NOTE | 2019-11-04 08:00 | NUR ---
PATIENT AWAKE & ALERT. NPO FOR STRESS TEST. PO MEDS HELD DUE TO NPO. DENIES ANY PERIODS OF CHEST PAIN THROUGHT THE NIGHT. LUNGS CLR/DIM T/O. DENIES NEEDS. CALL LIGHT IN REACH.
--- NOTE | 2019-11-04 09:00 | NUR ---
case management visits with patient, he is having a stress test today to determine treatment plan, patient will return home when medically stable and denies any home needs, case management will follow
--- NOTE | 2019-11-04 09:56 | NUR ---
Nutritional Support Services Note: Pt is NPO at this time for a stress test. Will follow. Philomena Luna Rdn Ld
--- NOTE | 2019-11-04 10:13 | NUR ---
INFORMED CONSENT SIGNED FOR LEXISCAN STRESS TEST WITH DR. WARD. RESTING EKG NSR, HR 61, BP 112/54. PULSE OX 98% AND LUNGS CLEAR BILATERALLY. COMPLETED ONE MINUTE OF LEXISCAN PROTOCOL RECEIVING LEXISCAN 0.4MG OVER 10 SECONDS. NO ARRHYTHMIAS OR ST CHANGES NOTED. PT C/O FEELING HOT. LAST RECOVERY HR 77, BP 112/64. WAITING NUCLEAR SCANNING IN STABLE CONDITION.
[2019-11-04 12:00] VITALS: BP 124/58
--- NOTE | 2019-11-04 15:00 | NUR ---
ASSUMED CARE FROM CHERIE ROCHE. PT SITTING IN CHAIR WATCHING TV. VOICES NO COMPLATINS. CALL LIGHT
[2019-11-04 16:00] VITALS: BP 123/55
--- NOTE | 2019-11-04 17:00 | NUR ---
PT EATING DINNER AT THIS TIME. NO S/S OF DISTRESS, CALL LIGHT IN REACH
[2019-11-04 20:00] VITALS: BP 123/55
[2019-11-05] VITALS: BP 127/55
[2019-11-05 06:53] LABS: BASO % 0.6 % (0.0-1.0); EOS # 0.2 10*3/uL (0.0-0.4); EOS % 3.5 % (1.0-4.0); HEMATOCRIT 40.9 % (42.0-52.0); LYMPH # 1.5 10*3/uL (1.3-4.4); LYMPH % 22.8 % (27.0-41.0); MEAN CELL VOLUME 84.2 fl (80.0-94.0); MEAN CORPUSCULAR HGB 26.7 pg (27.0-31.0); MEAN CORPUSCULAR HGB CONC 31.8 g/dl (33.0-37.0); MEAN PLATELET VOLUME 11.5 fl (9.6-12.3); MONO # 0.8 10*3/uL (0.1-1.0); MONO % 12.3 % (3.0-9.0); NEUT % 60.3 % (47.0-73.0); PLATELET COUNT AUTOMATED 191 10*3/uL (130-400); RED BLOOD COUNT 4.86 10*6/uL (4.50-5.90); RED CELL DISTRI WIDTH 16.5 % (0-14.5); WHITE BLOOD COUNT 6.6 10*3/uL (4.8-10.8)
[2019-11-05 06:59] LABS: BUN 18 mg/dl (7-24); CHLORIDE 107 mmol/L (98-107); CREATININE 1.11 mg/dL (0.70-1.30); SODIUM 138 mmol/L (136-145)
[2019-11-05 08:00] VITALS: BP 132/68
--- NOTE | 2019-11-05 08:43 | NUR ---
DREW GIVEN FOR COMPLAINTS OF GENERALIZED ARTHRITIS. CALL LIGHT IN REACH. WILL MONITOR.
--- NOTE | 2019-11-05 09:00 | NUR ---
case management visits with patient, he states he is being discharged to home and denies any home needs, reminded him to fill out paperwork given to him from [facility] and mail or bring back to the hospital, patient has not home needs
--- NOTE | 2019-11-05 09:32 | NUR ---
PER PT, NORCO WAS EFFECTIVE.
[2019-11-05] MEDS ORDERED: IMDUR SA30 MG PO (10:22)
[2019-11-05] MEDS ORDERED: VITAMIN D350 MC2 PO (10:22)
--- NOTE | 2019-11-05 11:00 | NUR ---
Nutritional Support Services Note: Cardiac diet as ordered. Has no questions at this time. Encouraged healthy eating and increased fruit and vegetables. Will follow as needed. Philomena Luna Rdn Ld
[2019-11-05 12:00] VITALS: BP 105/54
--- NOTE | 2019-11-05 12:36 | NUR ---
Discharge instructions reviewed with patient/family. Patient receptive and verbalizes understanding. Follow-up care arranged. Written instructions given to patient/family. JOSE CARLOS WILLIAM
== END 2019-11-05 12:36 | disposition home or self-care (01) | DRG 280 ==
LOC: ED 21:39 → EDHOLD 23:11 → 4E 23:11
PROVIDERS: Emergency Medicine; Internal Medicine; ADMIT Family Medicine
PROC: 3E073KZ Introduction of Other Diagnostic Substance into Coronary Artery, Percutaneous Approach (ICD-10-PCS; principal; 2019-11-04)
PROC: 4A02XM4 Measurement of Cardiac Total Activity, External Approach (ICD-10-PCS; principal; 2019-11-04)
DX: I21.4 Non-ST elevation (NSTEMI) myocardial infarction (principal); N17.0 Acute kidney failure with tubular necrosis; E87.1 Hypo-osmolality and hyponatremia; E11.42 Type 2 diabetes mellitus with diabetic polyneuropathy; E11.65 Type 2 diabetes mellitus with hyperglycemia; N18.2 Chronic kidney disease, stage 2 (mild); F17.210 Nicotine dependence, cigarettes, uncomplicated; I25.700 Atherosclerosis of coronary artery bypass graft(s), unspecified, with unstable angina pectoris; K21.9 Gastro-esophageal reflux disease without esophagitis; E11.69 Type 2 diabetes mellitus with other specified complication; I12.9 Hypertensive chronic kidney disease with stage 1 through stage 4 chronic kidney disease, or unspecified chronic kidney disease; E78.5 Hyperlipidemia, unspecified; E66.01 Morbid (severe) obesity due to excess calories; D64.9 Anemia, unspecified; E11.22 Type 2 diabetes mellitus with diabetic chronic kidney disease; E53.8 Deficiency of other specified B group vitamins; Z95.5 Presence of coronary angioplasty implant and graft; Z95.1 Presence of aortocoronary bypass graft; Z71.6 Tobacco abuse counseling; Z68.37 Body mass index [BMI] 37.0-37.9, adult; Z88.8 Allergy status to other drugs, medicaments and biological substances; Z79.899 Other long term (current) drug therapy; Z79.4 Long term (current) use of insulin; Z82.49 Family history of ischemic heart disease and other diseases of the circulatory system; Z83.3 Family history of diabetes mellitus; Z82.3 Family history of stroke; Z79.82 Long term (current) use of aspirin

== ENCOUNTER 2020-04-01 21:10 | Observation (INO) | payer OTHER ==
[~2020-04-01] VITALS: Ht 180.3 cm; Wt 125.3 kg
[~2020-04-01 21:10] MED LIST changes: +DULCOLAX STOOL100 M1 PO; -GRALISE300 M1 PO; +IMDUR SA30 MG PO; +NEURONTIN300 MG PO; +OMEPRAZOLE40 MG PO; -PRILOSEC20 M1 PO; +TRULICITY1.5 MG/0.5 SC; +VITAMIN D350 MC2 PO
[2020-04-01 21:16] VITALS: BP 131/63
[2020-04-01 21:31] LABS: BASO # 0.1 10*3/uL (0.0-0.1); BASO % 0.5 % (0.0-1.0); EOS # 0.3 10*3/uL (0.0-0.4); EOS % 2.5 % (1.0-4.0); HEMATOCRIT 42.9 % (42.0-52.0); LYMPH # 1.3 10*3/uL (1.3-4.4); LYMPH % 13.2 % (27.0-41.0); MEAN CELL VOLUME 82.7 fl (80.0-94.0); MEAN CORPUSCULAR HGB 24.5 pg (27.0-31.0); MEAN CORPUSCULAR HGB CONC 29.6 g/dl (33.0-37.0); MEAN PLATELET VOLUME 10.4 fl (9.6-12.3); MONO # 0.9 10*3/uL (0.1-1.0); MONO % 9.3 % (3.0-9.0); NEUT # 7.3 10*3/uL (2.3-7.9); PLATELET COUNT AUTOMATED 242 10*3/uL (130-400); RED BLOOD COUNT 5.19 10*6/uL (4.50-5.90); RED CELL DISTRI WIDTH 18.4 % (0-14.5); WHITE BLOOD COUNT 9.8 10*3/uL (4.8-10.8)
[2020-04-01 21:48] LABS: ALBUMIN 3.5 gm/dl (3.1-4.5); CREATININE 1.77 mg/dL (0.70-1.30); TOTAL PROTEIN 7.3 gm/dL (6.4-8.2)
[2020-04-01 21:49] LABS: TROPONIN I 0.026 ng/ml (<0.045)
[2020-04-01 23:17] VITALS: BP 133/59
[2020-04-01 23:46] VITALS: BP 128/61
[2020-04-02 01:15] VITALS: BP 136/61
[2020-04-02] MEDS ORDERED: IMDUR SA60 M1 PO (02:37)
[2020-04-02 06:21] LABS: BASO # 0.1 10*3/uL (0.0-0.1); BASO % 0.7 % (0.0-1.0); EOS # 0.3 10*3/uL (0.0-0.4); EOS % 3.7 % (1.0-4.0); HEMATOCRIT 44.5 % (42.0-52.0); LYMPH # 1.5 10*3/uL (1.3-4.4); LYMPH % 17.1 % (27.0-41.0); MEAN CELL VOLUME 83.6 fl (80.0-94.0); MEAN CORPUSCULAR HGB 24.6 pg (27.0-31.0); MEAN CORPUSCULAR HGB CONC 29.4 g/dl (33.0-37.0); MEAN PLATELET VOLUME 10.8 fl (9.6-12.3); MONO # 0.8 10*3/uL (0.1-1.0); MONO % 9.3 % (3.0-9.0); NEUT # 5.9 10*3/uL (2.3-7.9); NEUT % 68.6 % (47.0-73.0); PLATELET COUNT AUTOMATED 237 10*3/uL (130-400); RED BLOOD COUNT 5.32 10*6/uL (4.50-5.90); RED CELL DISTRI WIDTH 18.6 % (0-14.5); WHITE BLOOD COUNT 8.5 10*3/uL (4.8-10.8)
[2020-04-02 06:24] LABS: ALBUMIN 3.4 gm/dl (3.1-4.5); CREATININE 1.59 mg/dL (0.70-1.30)
[2020-04-02 06:26] LABS: TOTAL PROTEIN 7.2 gm/dL (6.4-8.2)
[2020-04-02 08:00] VITALS: BP 118/69
[2020-04-02 12:00] VITALS: BP 111/51
[2020-04-02 14:00] VITALS: BP 111/51
[2020-04-02 16:00] VITALS: BP 120/63
[2020-04-02 20:00] VITALS: BP 129/60
[2020-04-03] VITALS: BP 117/42
[2020-04-03 07:49] LABS: BUN 24 mg/dl (7-24); CHLORIDE 107 mmol/L (98-107); CREATININE 1.03 mg/dL (0.70-1.30); POTASSIUM 4.4 mmol/L (3.5-5.1); SODIUM 139 mmol/L (136-145)
[2020-04-03 08:00] VITALS: BP 120/78
[2020-04-03 12:00] VITALS: BP 129/65
[2020-04-03 16:00] VITALS: BP 124/53
[2020-04-03 20:00] VITALS: BP 140/63
[2020-04-04] VITALS: BP 143/68
[2020-04-04 06:08] LABS: BASO % 0.5 % (0.0-1.0); EOS # 0.2 10*3/uL (0.0-0.4); EOS % 2.7 % (1.0-4.0); HEMATOCRIT 42.8 % (42.0-52.0); LYMPH # 1.3 10*3/uL (1.3-4.4); LYMPH % 15.6 % (27.0-41.0); MEAN CELL VOLUME 83.4 fl (80.0-94.0); MEAN CORPUSCULAR HGB 24.8 pg (27.0-31.0); MEAN CORPUSCULAR HGB CONC 29.7 g/dl (33.0-37.0); MEAN PLATELET VOLUME 11.2 fl (9.6-12.3); MONO # 0.8 10*3/uL (0.1-1.0); MONO % 9.9 % (3.0-9.0); NEUT % 70.9 % (47.0-73.0); PLATELET COUNT AUTOMATED 207 10*3/uL (130-400); RED BLOOD COUNT 5.13 10*6/uL (4.50-5.90); RED CELL DISTRI WIDTH 18.1 % (0-14.5); WHITE BLOOD COUNT 8.5 10*3/uL (4.8-10.8)
[2020-04-04 06:28] LABS: ALBUMIN 3.5 gm/dl (3.1-4.5); BUN 20 mg/dl (7-24); CHLORIDE 107 mmol/L (98-107); POTASSIUM 4.2 mmol/L (3.5-5.1); SGOT/AST 18 IU/L (3-35); SGPT/ALT 32 U/L (12-78); SODIUM 137 mmol/L (136-145)
[2020-04-04 06:29] LABS: ALKALINE PHOSPHATASE 43 U/L (45-117); CREATININE 1.15 mg/dL (0.70-1.30)
[2020-04-04 08:00] VITALS: BP 126/56; BP 130/66
== END 2020-04-04 14:11 | disposition short-term general hospital (02) ==
LOC: ED 21:10 → EDHOLD 22:40 → 4E 04-02 01:06
PROVIDERS: Internal Medicine; Student in an Organized Health Care Education/Training Program; ADMIT Emergency Medicine; ATTEND Emergency Medicine
DX: R07.89 Other chest pain (principal); E11.65 Type 2 diabetes mellitus with hyperglycemia; N17.0 Acute kidney failure with tubular necrosis; D64.9 Anemia, unspecified; E87.8 Other disorders of electrolyte and fluid balance, not elsewhere classified; I25.10 Atherosclerotic heart disease of native coronary artery without angina pectoris; I10 Essential (primary) hypertension; E11.40 Type 2 diabetes mellitus with diabetic neuropathy, unspecified; E78.5 Hyperlipidemia, unspecified; K21.9 Gastro-esophageal reflux disease without esophagitis; F17.210 Nicotine dependence, cigarettes, uncomplicated

== ENCOUNTER 2020-04-30 01:15 | Inpatient (IN) | payer OTHER ==
[2020-04-30] VITALS (13 sets, daily range): BP systolic 104–122; BP diastolic 56–68
[~2020-04-30] VITALS: Ht 180.3 cm; Wt 134.5 kg
[~2020-04-30 01:15] MED LIST changes: +IMDUR SA60 M1 PO
[2020-04-30 01:36] LABS: BASO % 0.3 % (0.0-1.0); EOS % 0.3 % (1.0-4.0); HEMATOCRIT 24.6 % (42.0-52.0); LYMPH # 0.5 10*3/uL (1.3-4.4); LYMPH % 4.4 % (27.0-41.0); MEAN CELL VOLUME 87.5 fl (80.0-94.0); MEAN CORPUSCULAR HGB 24.9 pg (27.0-31.0); MEAN CORPUSCULAR HGB CONC 28.5 g/dl (33.0-37.0); MEAN PLATELET VOLUME 10.2 fl (9.6-12.3); MONO # 1.2 10*3/uL (0.1-1.0); MONO % 10.4 % (3.0-9.0); NEUT % 83.8 % (47.0-73.0); NUCLEATED RED BLOOD CELL 0.1 10*3/uL (0.0-0.0); NUCLEATED RED BLOOD CELL 0.8 % (0.0-0.0); PLATELET COUNT AUTOMATED 439 10*3/uL (130-400); RED BLOOD COUNT 2.81 10*6/uL (4.50-5.90); RED CELL DISTRI WIDTH 19.4 % (0-14.5); WHITE BLOOD COUNT 11.9 10*3/uL (4.8-10.8)
[2020-04-30 01:52] LABS: CREATININE 1.79 mg/dL (0.70-1.30); POTASSIUM 3.9 mmol/L (3.5-5.1); TOTAL PROTEIN 6.9 gm/dL (6.4-8.2)
[2020-04-30 01:55] LABS: TROPONIN I 0.202 ng/ml (<0.045)
[2020-04-30 05:44] LABS: TROPONIN I 0.17 ng/ml (<0.045)
[2020-04-30 05:52] LABS: ALBUMIN 3.1 gm/dl (3.1-4.5); CREATININE 1.85 mg/dL (0.70-1.30); POTASSIUM 4.1 mmol/L (3.5-5.1)
[2020-04-30 05:54] LABS: TOTAL PROTEIN 7.2 gm/dL (6.4-8.2)
[2020-04-30 06:01] LABS: BASO % 0.2 % (0.0-1.0); EOS % 0.1 % (1.0-4.0); HEMATOCRIT 25.4 % (42.0-52.0); LYMPH # 0.5 10*3/uL (1.3-4.4); LYMPH % 4.8 % (27.0-41.0); MEAN CELL VOLUME 89.8 fl (80.0-94.0); MEAN CORPUSCULAR HGB 24.7 pg (27.0-31.0); MEAN CORPUSCULAR HGB CONC 27.6 g/dl (33.0-37.0); MEAN PLATELET VOLUME 11.1 fl (9.6-12.3); MONO % 9.1 % (3.0-9.0); NEUT # 9.4 10*3/uL (2.3-7.9); NEUT % 85.3 % (47.0-73.0); NUCLEATED RED BLOOD CELL 0.1 10*3/uL (0.0-0.0); NUCLEATED RED BLOOD CELL 0.8 % (0.0-0.0); PLATELET COUNT AUTOMATED 411 10*3/uL (130-400); RED BLOOD COUNT 2.83 10*6/uL (4.50-5.90); RED CELL DISTRI WIDTH 19.7 % (0-14.5); WHITE BLOOD COUNT 11.1 10*3/uL (4.8-10.8)
--- NOTE | 2020-04-30 08:56 | NUR ---
CRITICAL LAB OF TROPONIN 0.[address] CABA
--- NOTE | 2020-04-30 09:10 | NUR ---
PT ASSESSMENT: PT CURRENTLY ON BIPAP WITH AVAPS MODE WITH [employer] VT OF 500 CC AND EPAP OF 8 . PT C/O SOB. MODE CHANGED TO S/T. IPAP INCREASED TO 18. VST INCREASED FROM APPROX 500 TO 600-700. PT STATED HE FELT LESS SOB. PT PULLED UP IN BED WITH BETTER POSITIONING WELL. BREAKFAST ARRIVED. PT TAKEN OFF OF BIPAP. PLACED ON 10 L HFNC TO EAT. SPO2 MAINTIANING AT 92% RESPS SLIGHTLY LABORED AND REGULAR. BIPAP ON S/B.
--- NOTE | 2020-04-30 10:00 | NUR ---
PT RECEIVING BLOOD TRANSFUSION PT RESTING IN BED NO COMPLAINTS BED IN LOWEST POSITION BED RAILS UP X 2 CALL LIGHT IN REACH
--- NOTE | 2020-04-30 10:15 | NUR ---
PT RESTING NO COMPLAINTS
--- NOTE | 2020-04-30 10:40 | NUR ---
PT ASYMPTOMATIC RATE INCREASED TO 240/HR
--- NOTE | 2020-04-30 11:41 | NUR ---
TRANSFUSION COMPLETE PT ASYMPTOMATIC
[2020-04-30 12:32] LABS: ABG BASE EXCESS 7.3 mmol/L (-2.0-2.0); ARTERIAL BLOOD GAS PH 7.468 (7.35-7.45)
--- NOTE | 2020-04-30 12:38 | NUR ---
PT BACK FROM CT
--- NOTE | 2020-04-30 12:53 | NUR ---
PT BGL 42 NO D50 IN [facility] NOTIFIED WILL CORRECT
--- NOTE | 2020-04-30 14:28 | NUR ---
DR SERRANO WISHED TO HAVE PT CHANGED TO ICU STATUS NOTIFIED DR HEDRICK TO [facility] WISHES THIS NURSE WAS NOTIFIED THAT THERE ARE NO ICU BED AND THAT PT WITH REMAIN EDHOLD STATUS
--- NOTE | 2020-04-30 17:12 | NUR ---
PT ACCIDENTILY REMOVED IV PT BGL 58 WILL ATTEMPT ANOTHER IV
--- NOTE | 2020-04-30 17:21 | NUR ---
VERBAL PERMISSION FROM PT WAS GIVEN TO DISCUSS PT CONDITION WITH FAMILY SPOKE WITH JOSE
--- NOTE | 2020-04-30 18:14 | NUR ---
PT USED BEDSIDE COMMODE PT WITH MODERATE BOWEL MOVEMENT THAT WAS SOFT AND DARK
--- NOTE | 2020-04-30 22:15 | NUR ---
PATIENT PLACED ON BIPAP 18/8, APPEARS TO BE TOLERATING WELL, WILL CONTINUE TO MONITOR.
[2020-05-01] VITALS (9 sets, daily range): BP systolic 100–160; BP diastolic 50–86
--- NOTE | 2020-05-01 01:34 | NUR ---
PT REQUESTING BGL CHECKED. PT BGL IS 153. NO COVERAGE ORDERED AT THIS TIME. WILL CONTINUE TO MONITOR.
--- NOTE | 2020-05-01 02:40 | NUR ---
PATIENT REMOVED FROM BIPAP PER HIS REQUEST. PLACED BACK ON 12 L/M HI GENA SPO2 97%.
--- NOTE | 2020-05-01 04:39 | NUR ---
MILTON WARD CONSULTED.
--- NOTE | 2020-05-01 04:40 | NUR ---
PATIENT PLACED BACK ON BIPAP 18/01. SPO2 96% PTIENT TOLERATING WELL.
[2020-05-01 05:45] LABS: ALBUMIN 2.9 gm/dl (3.1-4.5); CREATININE 1.78 mg/dL (0.70-1.30); POTASSIUM 3.7 mmol/L (3.5-5.1); TOTAL PROTEIN 6.8 gm/dL (6.4-8.2)
[2020-05-01 05:52] LABS: ABG BASE EXCESS 8.5 mmol/L (-2.0-2.0); ARTERIAL BLOOD GAS PH 7.491 (7.35-7.45)
[2020-05-01 06:05] LABS: BASO # 0.1 10*3/uL (0.0-0.1); BASO % 0.5 % (0.0-1.0); EOS # 0.1 10*3/uL (0.0-0.4); EOS % 1.2 % (1.0-4.0); LYMPH # 0.6 10*3/uL (1.3-4.4); MEAN CELL VOLUME 88.5 fl (80.0-94.0); MEAN CORPUSCULAR HGB 24.9 pg (27.0-31.0); MEAN CORPUSCULAR HGB CONC 28.1 g/dl (33.0-37.0); MEAN PLATELET VOLUME 11.1 fl (9.6-12.3); MONO # 1.3 10*3/uL (0.1-1.0); MONO % 13.6 % (3.0-9.0); NEUT # 7.1 10*3/uL (2.3-7.9); NEUT % 77.3 % (47.0-73.0); NUCLEATED RED BLOOD CELL 0.1 10*3/uL (0.0-0.0); PLATELET COUNT AUTOMATED 371 10*3/uL (130-400); RED BLOOD COUNT 3.05 10*6/uL (4.50-5.90); RED CELL DISTRI WIDTH 19.3 % (0-14.5); WHITE BLOOD COUNT 9.2 10*3/uL (4.8-10.8)
--- NOTE | 2020-05-01 07:30 | NUR ---
Shift chart check completed.
--- NOTE | 2020-05-01 10:10 | NUR ---
ER CALLED OK TO BRING PATIENT TO FLOOR
--- NOTE | 2020-05-01 10:55 | NUR ---
A 69, admitted to [facility], under the services of JOSE Cagle DO with a diagnosis of CHF/NINFA. Chief complaint is HERE WITH C/O SOB. Patient arrived via stretcher from ER. Monitor applied. Initial assessment completed. Vital signs taken and recorded. JOSE CAGLE DO notified of admission to the unit. Orders received. See assessment for past medical history, medications and allergies. Patient and/or family oriented to unit. [facility] visitation policy reviewed. Clothing/patient valuable form completed. PO VELASQUEZ
--- NOTE | 2020-05-01 12:35 | NUR ---
DR HEDRICK & DR SERRANO BOTH MADE ROUNDS
[2020-05-01 13:34] LABS: BILIRUBIN Negative (Negative); BLOOD 3+ (Negative); CLARITY Clear (Clear); COLOR Yellow (Yellow); GLUCOSE 3+ (Negative); KETONE Negative (Negative); LEUKO ESTERASE Trace (Negative); NITRITE Negative (Negative); PH 7.5 (4.5-8.0); SPECIFIC GRAVITY 1.015 (1.001-1.030)
[2020-05-01 13:45] LABS: BACTERIA 1+; RBC TNTC rbc/hpf (0-2)
--- NOTE | 2020-05-01 13:46 | NUR ---
UP TO BSC - UNABLE TO MOVE BOWELS BUT + FLATUS..BIPAP PLACED BACK ON WITH NEW SETTING OF 14/[address] SERRANO.
[2020-05-01] MEDS ORDERED: INSULIN LI100 UNIT/2 SQ (14:56)
--- NOTE | 2020-05-01 15:06 | NUR ---
DR BEAVERS NOTIFIED THAT THE MED REC WAS UPDATED USING THE MED CLAIM HISTORY AND PATIENT VERIFIED MOST BUT HAS SOME HE IS UNSURE OF EXACTLY
--- NOTE | 2020-05-01 16:32 | NUR ---
IV TO RT FOREARM TENDER. REMOVED AND IV started left antecubital with #22 protective cath after 1 attempts. Site prepped with Chloroprep. Sterile dressing applied. Patient tolerated procedure well. RT ARM IV HAD PRESSURE HELD FOR 3 MIN TO STOP THE BLEEDING. PO VELASQUEZ
--- NOTE | 2020-05-01 19:56 | NUR ---
pt. given tylenol at 1947 as ordered for complaints of a headache.
--- NOTE | 2020-05-01 20:47 | NUR ---
PT. STATED TYLENOL EFFECTIVE FOR HEADACHE.
--- NOTE | 2020-05-01 22:14 | NUR ---
PT. RESTING IN BED. HEP LOCK IN ITALO ASYMPT. LUNGS HAVE PB RALES IN BASES BILAT, PULSE OX 100% ON 12L HF NC. ABDOMEN FIRMLY DISTENDED AND NORMO. 2-3+BLE EDEMA NOTED. THOMPSON CATH DRAINING A CLEAR YELLOW URINE. RESP. EASY AND REG ,NO DISTRESS.
[2020-05-02] VITALS: BP 99/55
[2020-05-02 04:00] VITALS: BP 109/58
[2020-05-02 06:28] LABS: BASO # 0.1 10*3/uL (0.0-0.1); BASO % 0.7 % (0.0-1.0); EOS # 0.3 10*3/uL (0.0-0.4); HEMATOCRIT 26.3 % (42.0-52.0); LYMPH # 0.9 10*3/uL (1.3-4.4); LYMPH % 10.6 % (27.0-41.0); MEAN CELL VOLUME 88.6 fl (80.0-94.0); MEAN CORPUSCULAR HGB 24.9 pg (27.0-31.0); MEAN CORPUSCULAR HGB CONC 28.1 g/dl (33.0-37.0); MEAN PLATELET VOLUME 10.9 fl (9.6-12.3); MONO # 1.1 10*3/uL (0.1-1.0); NEUT # 6.2 10*3/uL (2.3-7.9); NEUT % 72.2 % (47.0-73.0); NUCLEATED RED BLOOD CELL 0.3 % (0.0-0.0); PLATELET COUNT AUTOMATED 323 10*3/uL (130-400); RED BLOOD COUNT 2.97 10*6/uL (4.50-5.90); RED CELL DISTRI WIDTH 19.1 % (0-14.5); WHITE BLOOD COUNT 8.6 10*3/uL (4.8-10.8)
[2020-05-02 06:39] LABS: ALBUMIN 2.8 gm/dl (3.1-4.5); CREATININE 1.69 mg/dL (0.70-1.30); POTASSIUM 3.7 mmol/L (3.5-5.1); TOTAL PROTEIN 6.7 gm/dL (6.4-8.2)
[2020-05-02 08:00] VITALS: BP 127/75
[2020-05-02 08:08] LABS: ABG BASE EXCESS 8.5 mmol/L (-2.0-2.0); ARTERIAL BLOOD GAS PH 7.474 (7.35-7.45)
--- NOTE | 2020-05-02 08:21 | NUR ---
PHYSICAL THERAPY Pt admitted with CHF,AKF,SIRS,Anemia with recent NSTEMI please consult PT if pt has a decline in functional status below baseline thank you Marla Tinsley PT
--- NOTE | 2020-05-02 09:17 | NUR ---
DURING 1ST 15 MIN OF ECHOT ON 12LHFNC BUT BECAME SOB & REQUESTED BIPAP - RESP BECAME EASIER QUICKLY & PATIENT ABLE TO REST & TOLERATE TEST.
--- NOTE | 2020-05-02 10:20 | NUR ---
Nursing screen received and chart was reviewed. Patient is a 69 year old male admitted with SOB and acute systolic CHF. If patient has a decline in ADLs, transfers or functional moiblity please send OT orders. Thank you. Gisela Mackey OTR/Bhavana
--- NOTE | 2020-05-02 11:38 | NUR ---
Trauma Coordinator in to talk to patient. Patient states lives at home alone normally but currently has a neighbor living with him. There are 0 steps in the home. Physician: Dr. Shashank Becerra [facility]acy: [facility] Home health services: would like [facility] on discharge Patient's level of ADLs: MINIMAL ASSIST Patient has working utilities: yes DME: cane, walker, O2 @ 2-3L nc, portable O2 tanks, nebulizer, O2 supplier unknown Follow-up physician's appointment after d/c: will be made by the hospitalist nurse director upon discharge Does patient want to access PORTAL?: no Discharge plan discussed with patient. He is sitting up on the edge of his bed with bipap on. He lives at home normally alone but has a neighbor that is currently staying with him. He is independent in his ADLs and ambulates with either a cane or a walker. Discussed short term rehab and he declines. He states he will not go anywhere but home. Discussed home health care services and he is agreeable. When provided with a list of agencies he chose [facility]. Hospitalist nurse director notified. He is unsure of transportation on discharge. When medically stable he will be discharged to home with [facility] services. SANG HOLBROOK
[2020-05-02 12:00] VITALS: BP 111/57
[2020-05-02 16:00] VITALS: BP 110/62
[2020-05-02 20:00] VITALS: BP 100/50
--- NOTE | 2020-05-02 23:28 | NUR ---
ASSUMED CARE OF PATIENT. PATIENT IS AAOX3 RESTING IN BED ON BIPAP. ASSESSMENT IS COMPLETE WITH NO C/O OR S/S OF DISTRESS NOTED AT THIS TIME. BED IS LOW, LOCKED, ALARMED, AND CALL LIGHT IS WITHIN REACH. VITALS OBTAINED AND STABLE. WILL CONTINUE TO MONITOR, SEE INTERVENTIONS.
[2020-05-03] VITALS: BP 102/48
[2020-05-03 04:00] VITALS: BP 107/56
--- NOTE | 2020-05-03 04:00 | NUR ---
VITALS OBTAINED AND STBALE. NO NEEDS EXPRESSED AT THIS TIME. RESTING COMFORTABLY ON BIPAP IN CHAIR. CALL LIGHT IS WITHIN REACH.
--- NOTE | 2020-05-03 04:34 | NUR ---
CHART CHECK COMPLETE.
[2020-05-03 07:03] LABS: BASO % 0.4 % (0.0-1.0); EOS # 0.2 10*3/uL (0.0-0.4); EOS % 2.6 % (1.0-4.0); HEMATOCRIT 27.4 % (42.0-52.0); LYMPH # 0.8 10*3/uL (1.3-4.4); LYMPH % 8.8 % (27.0-41.0); MEAN CELL VOLUME 88.7 fl (80.0-94.0); MEAN CORPUSCULAR HGB 24.6 pg (27.0-31.0); MEAN CORPUSCULAR HGB CONC 27.7 g/dl (33.0-37.0); MONO # 1.1 10*3/uL (0.1-1.0); MONO % 12.2 % (3.0-9.0); NEUT # 7.1 10*3/uL (2.3-7.9); NEUT % 75.7 % (47.0-73.0); NUCLEATED RED BLOOD CELL 0.3 % (0.0-0.0); PLATELET COUNT AUTOMATED 303 10*3/uL (130-400); RED BLOOD COUNT 3.09 10*6/uL (4.50-5.90); RED CELL DISTRI WIDTH 18.9 % (0-14.5); WHITE BLOOD COUNT 9.4 10*3/uL (4.8-10.8)
[2020-05-03 07:38] LABS: ALBUMIN 2.9 gm/dl (3.1-4.5); CREATININE 1.7 mg/dL (0.70-1.30); POTASSIUM 3.3 mmol/L (3.5-5.1); TOTAL PROTEIN 6.9 gm/dL (6.4-8.2)
[2020-05-03 08:00] VITALS: BP 92/42
[2020-05-03 09:30] LABS: ABG BASE EXCESS 7.9 mmol/L (-2.0-2.0); ARTERIAL BLOOD GAS PH 7.434 (7.35-7.45)
--- NOTE | 2020-05-03 09:52 | NUR ---
AAOx3 rwemians up in chair at this time. C/O constipation. Medicated see e-aug.
--- NOTE | 2020-05-03 11:52 | NUR ---
CM in to see patient. No new needs or request at this time. When medically stable he will be discharged to home with [facility] services.
[2020-05-03 12:00] VITALS: BP 96/48
--- NOTE | 2020-05-03 13:31 | NUR ---
Faxed home health order referral to [facility] along with face to face and clinical.
--- NOTE | 2020-05-03 13:34 | NUR ---
Dr. Keys video visit to this pt. Orders were recieved. Ok to transfer to telemetry when bed is available.
--- NOTE | 2020-05-03 14:35 | NUR ---
Received call from Mercedes at [facility] they do not take patient's insurance. Spoke to [facility] who do not have staff to take patient. Spoke to [facility] and they do not take patient's insurance. Spoke to [facility]. The will look at the referral to see if they are able to take patient. Referral faxed. Awaiting return call.
[2020-05-03 16:00] VITALS: BP 103/48
--- NOTE | 2020-05-03 16:00 | NUR ---
SITTING IN CHAIR AT BEDSIDE. DENIES ANYB COMPLAINTS. SCATTERED RHONCHI HEARD IN LUNG MARINELLI. PULSE OX 100% ON 8L HIGH FLOW NASAL CANNULA. 2+ PITTING EDEMA NOTED TO BILATERAL LOWER LEGS. THOMPSON DRAINING PINK COLORED URINE. HEP LOCK INTACT TO ITALO
--- NOTE | 2020-05-03 18:14 | NUR ---
TRANSFERRED TO ROOM 504-2 VIA WHEELCHAIR
[2020-05-03 20:00] VITALS: BP 101/49
--- NOTE | 2020-05-03 21:30 | NUR ---
DESIRAE HERE TO PICK PATIENT UP. PATIENT OFF FLOOR AT THIS TIME.
[2020-05-04] VITALS: BP 103/46
--- NOTE | 2020-05-04 03:37 | NUR ---
PATIENT SLEEPING. NO SIGNS OF DISTRESS. BIPAP ON. WILL CONTINUE TO MONITOR.
--- NOTE | 2020-05-04 03:59 | NUR ---
24 HR chart check completed.
[2020-05-04 06:55] LABS: BASO # 0.1 10*3/uL (0.0-0.1); BASO % 0.5 % (0.0-1.0); EOS # 0.4 10*3/uL (0.0-0.4); EOS % 4.1 % (1.0-4.0); HEMATOCRIT 27.5 % (42.0-52.0); LYMPH # 1.1 10*3/uL (1.3-4.4); MEAN CELL VOLUME 87.6 fl (80.0-94.0); MEAN CORPUSCULAR HGB 24.5 pg (27.0-31.0); MEAN PLATELET VOLUME 10.8 fl (9.6-12.3); MONO # 1.1 10*3/uL (0.1-1.0); NEUT # 6.5 10*3/uL (2.3-7.9); NUCLEATED RED BLOOD CELL 0.2 % (0.0-0.0); PLATELET COUNT AUTOMATED 282 10*3/uL (130-400); RED BLOOD COUNT 3.14 10*6/uL (4.50-5.90); RED CELL DISTRI WIDTH 18.6 % (0-14.5); WHITE BLOOD COUNT 9.2 10*3/uL (4.8-10.8)
[2020-05-04 07:10] LABS: ALBUMIN 2.9 gm/dl (3.1-4.5); CREATININE 1.76 mg/dL (0.70-1.30); POTASSIUM 3.4 mmol/L (3.5-5.1); TOTAL PROTEIN 7.2 gm/dL (6.4-8.2)
--- NOTE | 2020-05-04 07:30 | NUR ---
Received message from Rosaura from [facility]. They are unable to accept patient due to staffing. Faxed referral to [facility].
[2020-05-04 08:00] VITALS: BP 106/60
[2020-05-04 08:18] LABS: ABG BASE EXCESS 11.3 mmol/L (-2.0-2.0); ARTERIAL BLOOD GAS PH 7.471 (7.35-7.45)
--- NOTE | 2020-05-04 09:00 | NUR ---
CM in to see patient. No new needs or request at this time. When medically stable he will be discharged to home with home health services when an available home health service is located.
--- NOTE | 2020-05-04 09:31 | NUR ---
pt resting in bed/ no distress noted. will monitor
[2020-05-04 12:00] VITALS: BP 100/57
--- NOTE | 2020-05-04 12:34 | NUR ---
[facility] has accepted patient.
[2020-05-04 16:00] VITALS: BP 107/45
[2020-05-04 20:00] VITALS: BP 93/49
[2020-05-05] VITALS: BP 92/44
--- NOTE | 2020-05-05 00:37 | NUR ---
PLACED PATIENT ON BIPAP 14/8 AT 40%. ALARMS ON AND FUNCTIONAL, WILL CONTINUE TO MONITOR PATIENT.
[2020-05-05 06:25] LABS: CREATININE 1.67 mg/dL (0.70-1.30); POTASSIUM 3.3 mmol/L (3.5-5.1)
[2020-05-05 06:26] LABS: BASO # 0.1 10*3/uL (0.0-0.1); BASO % 0.5 % (0.0-1.0); EOS # 0.4 10*3/uL (0.0-0.4); EOS % 4.7 % (1.0-4.0); LYMPH # 0.9 10*3/uL (1.3-4.4); LYMPH % 10.3 % (27.0-41.0); MEAN CELL VOLUME 85.9 fl (80.0-94.0); MEAN CORPUSCULAR HGB 25.4 pg (27.0-31.0); MEAN CORPUSCULAR HGB CONC 29.6 g/dl (33.0-37.0); MEAN PLATELET VOLUME 10.9 fl (9.6-12.3); MONO # 1.2 10*3/uL (0.1-1.0); MONO % 13.2 % (3.0-9.0); NEUT # 6.5 10*3/uL (2.3-7.9); NEUT % 70.9 % (47.0-73.0); PLATELET COUNT AUTOMATED 247 10*3/uL (130-400); RED BLOOD COUNT 2.91 10*6/uL (4.50-5.90); RED CELL DISTRI WIDTH 18.6 % (0-14.5); WHITE BLOOD COUNT 9.2 10*3/uL (4.8-10.8)
[2020-05-05 08:00] VITALS: BP 94/53
--- NOTE | 2020-05-05 09:00 | NUR ---
CM in to see patient. No new needs or request at this time. When medically stable he will be discharged to home with [facility].
[2020-05-05 12:00] VITALS: BP 100/48
--- NOTE | 2020-05-05 12:07 | NUR ---
NOTIFIED PHYSICIAN PATIENT STATES HE TAKES 15 UNITS INSULIN PREMEAL. SHE STATED KEEP HIM ON SLIDING SCALE WHILE HERE.
--- NOTE | 2020-05-05 13:24 | NUR ---
Received message from Tata at [facility]. She spoke to patient and patient states he thinks he has [facility]. Reached out to [facility] and patient is current with them. Will send updated clinical to [facility] when discharged.
[2020-05-05 16:00] VITALS: BP 102/54
[2020-05-05 20:00] VITALS: BP 96/43
--- NOTE | 2020-05-05 23:00 | NUR ---
PLACED PATIENT ON BIPAP FOR HS
[2020-05-06] VITALS: BP 113/52
--- NOTE | 2020-05-06 05:59 | NUR ---
BEDSIDE BGM 186. 3 UNITS OF HUMALOG INSULIN COVERAGE GIVEN PER SLIDING SCALE GIVEN SUBCU. TOLERATED WELL. PT. IS ASYMPTOMATIC AT THIS TIME FOR S/S OF HYPO/HYPERGLYCEMIA. SKIN IS WARM AND DRY TO TOUCH.
[2020-05-06 06:30] LABS: CREATININE 1.5 mg/dL (0.70-1.30); POTASSIUM 3.5 mmol/L (3.5-5.1)
--- NOTE | 2020-05-06 09:00 | NUR ---
CM in to see patient. No new needs or request at this time. When medically stable he will be discharged to home with [facility].
--- NOTE | 2020-05-06 11:00 | NUR ---
Faxed updated notes and home health order to [facility].
[2020-05-06 12:00] VITALS: BP 97/54
[2020-05-06 16:00] VITALS: BP 108/40
--- NOTE | 2020-05-06 17:05 | NUR ---
Medicated with norco per prn order for complaints of bl lower leg pain. States his legs have been hanging down as he was sitting up in chair and they are aching now. Reclined chair as well to elevate legs.
[2020-05-06 20:00] VITALS: BP 108/73
--- NOTE | 2020-05-06 21:14 | NUR ---
24 HR chart check completed.
[2020-05-07] VITALS: BP 106/56
[2020-05-07 04:00] VITALS: BP 110/62
[2020-05-07 07:19] LABS: CREATININE 1.55 mg/dL (0.70-1.30)
[2020-05-07 08:00] VITALS: BP 119/63
--- NOTE | 2020-05-07 08:00 | NUR ---
Assessment completed. Reviewed fluid restriction 2000 cc a day. Pt is noncompliant with this.
--- NOTE | 2020-05-07 08:06 | NUR ---
Medicated with tylenol per prn order for complaints of bl leg pain.
--- NOTE | 2020-05-07 09:00 | NUR ---
States that medication was effective.
[2020-05-07 12:00] VITALS: BP 99/53
[2020-05-07 16:00] VITALS: BP 103/51
--- NOTE | 2020-05-07 16:12 | NUR ---
Medicated with zofran per prn order and MOM per prn for c/o nausea and no BM today.
[2020-05-07 20:00] VITALS: BP 92/47
[2020-05-08] VITALS (14 sets, daily range): BP systolic 86–114; BP diastolic 33–73
--- NOTE | 2020-05-08 01:28 | NUR ---
24 HR chart check completed.
--- NOTE | 2020-05-08 01:42 | NUR ---
PATIENT REQUESTED FOR BIPAP TO COME OFF AND TO HAVE NASAL CANNULA PUT BACK ON. 4L NC INTACT. CALL LIGHT WITHIN REACH, WILL MONITOR
--- NOTE | 2020-05-08 05:30 | NUR ---
CONTACTED DR. ALICEA AFTER CHECKING THE PT'S BP. HE RECOMENDED THAT WE HOLD THE 60MG OF LASIX THIS A.M. DUE TO THE PATIENT HAVING A 96/50 MANUAL BP.
[2020-05-08 06:34] LABS: HEMATOCRIT 22.6 % (42.0-52.0); MEAN CELL VOLUME 86.6 fl (80.0-94.0); MEAN CORPUSCULAR HGB 24.1 pg (27.0-31.0); MEAN CORPUSCULAR HGB CONC 27.9 g/dl (33.0-37.0); MEAN PLATELET VOLUME 11.3 fl (9.6-12.3); NUCLEATED RED BLOOD CELL 0.3 % (0.0-0.0); PLATELET COUNT AUTOMATED 177 10*3/uL (130-400); RED BLOOD COUNT 2.61 10*6/uL (4.50-5.90); RED CELL DISTRI WIDTH 18.5 % (0-14.5); WHITE BLOOD COUNT 10.4 10*3/uL (4.8-10.8)
--- NOTE | 2020-05-08 06:45 | NUR ---
LAB CALLED WITH A CRITICAL HGB VALUE OF 6.3 AND HCT OF 22.3. THE RESIDENT ON FOR DR. FRAZIER WAS NOTIFIED AND HE SAID THAT HE WILL ORDER BLOOD.
[2020-05-08 07:03] LABS: ALBUMIN 2.9 gm/dl (3.1-4.5); CREATININE 1.82 mg/dL (0.70-1.30); POTASSIUM 4.9 mmol/L (3.5-5.1); TOTAL PROTEIN 6.8 gm/dL (6.4-8.2)
[2020-05-08 07:22] LABS: BASOPHILS 2 % (0-1); PLATELET SUFFICIENCY NORMAL (NORMAL); POLYCHROMASIA SLIGHT; TOTAL CELLS COUNTED 100 #CELLS
--- NOTE | 2020-05-08 09:40 | NUR ---
UNIT 1 OF PRBC'S INITIATED. DISCUSSED S/S OF A REACTION, PATIENT VERBALIZES UNDERSTANDING, SEE TAR FOR DETAILS.
--- NOTE | 2020-05-08 09:52 | NUR ---
HELD AM PABLO AND ANTONZAFazal FOR BP 86/46 MANUALLY.
[2020-05-08 10:38] LABS: BILIRUBIN Negative (Negative); BLOOD 3+ (Negative); CLARITY Clear (Clear); COLOR Yellow (Yellow); GLUCOSE Negative (Negative); KETONE Negative (Negative); LEUKO ESTERASE 1+ (Negative); NITRITE Negative (Negative)
[2020-05-08 10:59] LABS: RBC TNTC rbc/hpf (0-2)
--- NOTE | 2020-05-08 11:03 | NUR ---
DR. WELLS'S ANSWERING SERVICE NOTIFIED OF CONSULT RE: ARF/HEMATURIA/DIURESIS.
--- NOTE | 2020-05-08 11:15 | NUR ---
DR. WELLS NOTIFIED OF CONSULT, HE WILL SEE THE PATIENT TOMORROW, PER .
[2020-05-08 13:55] LABS: BASO # 0.1 10*3/uL (0.0-0.1); BASO % 0.6 % (0.0-1.0); EOS # 0.2 10*3/uL (0.0-0.4); LYMPH # 0.9 10*3/uL (1.3-4.4); MEAN CELL VOLUME 86.5 fl (80.0-94.0); MEAN CORPUSCULAR HGB 24.6 pg (27.0-31.0); MEAN CORPUSCULAR HGB CONC 28.4 g/dl (33.0-37.0); MEAN PLATELET VOLUME 11.6 fl (9.6-12.3); MONO # 1.1 10*3/uL (0.1-1.0); MONO % 10.7 % (3.0-9.0); NEUT # 7.9 10*3/uL (2.3-7.9); NEUT % 77.3 % (47.0-73.0); PLATELET COUNT AUTOMATED 179 10*3/uL (130-400); RED BLOOD COUNT 2.89 10*6/uL (4.50-5.90); RED CELL DISTRI WIDTH 18.5 % (0-14.5); WHITE BLOOD COUNT 10.2 10*3/uL (4.8-10.8)
--- NOTE | 2020-05-08 20:30 | NUR ---
PT SITTING UP IN RECLINER CHAIR WITH EYES CLOSED. RESP-EASY AND REGULAR. OXYGEN IN USE. CALL LIGHT IN REACH.
--- NOTE | 2020-05-08 20:30 | NUR ---
SITTING UP IN RECLINER CHAIR. RESP-EASY AND REGULAR. OXYGEN IN USE. BSG-262, SEE EMAR. NO C/O AT THIS TIME. CALL LIGHT IN REACH. SEE SHIFT ASSESSMENT.
[2020-05-09] VITALS (12 sets, daily range): BP systolic 94–125; BP diastolic 49–65
--- NOTE | 2020-05-09 00:10 | NUR ---
PT SITTING UP IN CHAIR. TOLERATED ROUTINE MED WITH NO PROBLEM. OXYGEN IN USE. NO C/O AT THIS TIME. CALL LIGHT IN REACH. SEE SHIFT ASSESSMENT.
--- NOTE | 2020-05-09 00:30 | NUR ---
PATIENT PLACED ON BIPAP FOR HS
--- NOTE | 2020-05-09 02:00 | NUR ---
GAVE PT A DRINK THEN PLACED BACK ON BIPAP. CALL LIGHT IN REACH.
--- NOTE | 2020-05-09 04:00 | NUR ---
PT RESTING IN BED WITH HOB ELEVATED WITH OXYGEN IN USE VIA NASAL CANNULA. CALL LIGHT IN REACH.
--- NOTE | 2020-05-09 04:39 | NUR ---
CALLED DR. BROWN MADE AWARE PT STOOL FOR OCCULT BLOOD WAS POSITIVE. NO NEW ORDERS GIVEN.
--- NOTE | 2020-05-09 05:20 | NUR ---
PT RESTING IN BED. BSG-136, SEE EMAR. OXYGEN IN USE. CALL LIGHT IN REACH.
[2020-05-09 06:26] LABS: BASO % 0.4 % (0.0-1.0); EOS # 0.2 10*3/uL (0.0-0.4); EOS % 2.1 % (1.0-4.0); HEMATOCRIT 24.8 % (42.0-52.0); LYMPH # 0.9 10*3/uL (1.3-4.4); LYMPH % 8.8 % (27.0-41.0); MEAN CELL VOLUME 85.8 fl (80.0-94.0); MEAN CORPUSCULAR HGB 24.2 pg (27.0-31.0); MEAN CORPUSCULAR HGB CONC 28.2 g/dl (33.0-37.0); MEAN PLATELET VOLUME 11.8 fl (9.6-12.3); MONO # 1.1 10*3/uL (0.1-1.0); MONO % 10.8 % (3.0-9.0); NEUT # 7.7 10*3/uL (2.3-7.9); NEUT % 77.5 % (47.0-73.0); NUCLEATED RED BLOOD CELL 0.2 % (0.0-0.0); PLATELET COUNT AUTOMATED 182 10*3/uL (130-400); RED BLOOD COUNT 2.89 10*6/uL (4.50-5.90); RED CELL DISTRI WIDTH 18.5 % (0-14.5); WHITE BLOOD COUNT 9.9 10*3/uL (4.8-10.8)
[2020-05-09 06:37] LABS: CREATININE 1.85 mg/dL (0.70-1.30); POTASSIUM 4.4 mmol/L (3.5-5.1); TOTAL PROTEIN 6.9 gm/dL (6.4-8.2)
--- NOTE | 2020-05-09 08:00 | NUR ---
Patient resting quietly with no c/o discomfort. Respirations easy and regular. Vital signs stable. No overt distress. PREET CALDERÓN
--- NOTE | 2020-05-09 11:12 | NUR ---
DR LANZA NOTIFIED OF CONSULT.
--- NOTE | 2020-05-09 11:14 | NUR ---
DR FRAZIER NOTIFIED OF CONTINUED TARRY STOOLS, HYPOTENTION AND MEDS HELD.
[2020-05-09 16:54] LABS: HEMATOCRIT 23.2 % (42.0-52.0)
--- NOTE | 2020-05-09 16:59 | NUR ---
NOTIFIED OF HGB 6.6. SAID SHE WOULD PUT A TRANSFUSE ORDER IN.
--- NOTE | 2020-05-09 17:28 | NUR ---
NOTIFIED OF H&H RESULTS. OK FOR TRANSFUSION PER PRIMARY TEAM. KEEP NPO AND ORDERS FOR EGD IN AM.
--- NOTE | 2020-05-09 18:15 | NUR ---
BLOOD TRANSFUSION INITIATED. WILL MONITOR CLOSELY. CALL LIGHT IN REACH. VSS.
--- NOTE | 2020-05-09 19:17 | NUR ---
CONTINUES TO TOLERATE TRANSFUSION WELL. CALL LIGHT IN REACH.
[2020-05-09 22:13] LABS: BASO % 0.5 % (0.0-1.0); EOS # 0.2 10*3/uL (0.0-0.4); EOS % 2.5 % (1.0-4.0); HEMATOCRIT 25.5 % (42.0-52.0); LYMPH # 0.9 10*3/uL (1.3-4.4); LYMPH % 9.7 % (27.0-41.0); MEAN CELL VOLUME 87.3 fl (80.0-94.0); MEAN CORPUSCULAR HGB 25.3 pg (27.0-31.0); MEAN PLATELET VOLUME 11.8 fl (9.6-12.3); NEUT # 6.6 10*3/uL (2.3-7.9); NEUT % 75.8 % (47.0-73.0); PLATELET COUNT AUTOMATED 161 10*3/uL (130-400); RED BLOOD COUNT 2.92 10*6/uL (4.50-5.90); RED CELL DISTRI WIDTH 17.6 % (0-14.5); WHITE BLOOD COUNT 8.7 10*3/uL (4.8-10.8)
[2020-05-10] VITALS (10 sets, daily range): BP systolic 108–121; BP diastolic 50–66
[2020-05-10 06:35] LABS: BASO % 0.4 % (0.0-1.0); EOS # 0.3 10*3/uL (0.0-0.4); EOS % 3.4 % (1.0-4.0); HEMATOCRIT 27.3 % (42.0-52.0); LYMPH # 0.9 10*3/uL (1.3-4.4); LYMPH % 10.5 % (27.0-41.0); MEAN CELL VOLUME 86.4 fl (80.0-94.0); MEAN CORPUSCULAR HGB CONC 28.9 g/dl (33.0-37.0); MEAN PLATELET VOLUME 11.8 fl (9.6-12.3); MONO % 11.1 % (3.0-9.0); NEUT # 6.6 10*3/uL (2.3-7.9); NEUT % 74.2 % (47.0-73.0); PLATELET COUNT AUTOMATED 181 10*3/uL (130-400); RED BLOOD COUNT 3.16 10*6/uL (4.50-5.90); RED CELL DISTRI WIDTH 17.4 % (0-14.5); WHITE BLOOD COUNT 8.9 10*3/uL (4.8-10.8)
[2020-05-10 06:57] LABS: CREATININE 1.64 mg/dL (0.70-1.30); POTASSIUM 4.1 mmol/L (3.5-5.1)
--- NOTE | 2020-05-10 07:47 | NUR ---
NOTIFIED DR. LANZA OF PATIENT HGB THIS MORNING. STATED TO KEEP PATIENT NPO.
--- NOTE | 2020-05-10 08:30 | NUR ---
CM in to see patient. No new needs or request at this time. When medically stable he will be discharged to home with the resumption of his [facility].
--- NOTE | 2020-05-10 09:23 | NUR ---
PATIENT TO OR FOR EGD PROCEDURE AT THIS TIME.
--- NOTE | 2020-05-10 11:34 | NUR ---
PATIENT BACK FROM EGD, RESUMING MEDS AND A CLEAR LIQUID DIET FOR COLO PREP/COLONOSCOPY TOMORROW, PER DR. LANZA'S ORDERS.
--- NOTE | 2020-05-10 21:25 | NUR ---
PATIENT SITTING ON EDGE OF BED WATCHING TELEVISION. PATIENT VOICES NO COMPLAINTS/NEEDS AT THIS TIME. VSS. RESPIRATIONS EASY, NON LABORED. PATIENT WEARING 4LNC. PATIENT REMINDED HE IS NPO AT MIDNIGHT FOR A COLONOSCOPY. BED IN LOWEST POSITION,CALL LIGHT WITHIN REACH. WILL CONTINUE TO MONITOR.
--- NOTE | 2020-05-10 23:45 | NUR ---
PATIENT SLEEPING, NO SIGNS OF DISTRESS. RESPIRATIONS EASY, NON LABORED. WILL CONTINUE TO MONITOR.
[2020-05-11] VITALS (8 sets, daily range): BP systolic 92–133; BP diastolic 42–72
--- NOTE | 2020-05-11 01:39 | NUR ---
24 HR chart check completed.
--- NOTE | 2020-05-11 05:10 | NUR ---
FLEETS ENEMA GIVEN AT THIS TIME PER ORDERS. PATIENT TOLERATED WELL. ASSITED TO BSC. LARGE AMOUNT OF YELLOW LIQUID STOOL PRODUCED. PATIENT REQUESTING A BREAK. WILL ADMINISTER TAP WATER NEXT PER ORDERS.
[2020-05-11 06:31] LABS: BASO % 0.5 % (0.0-1.0); EOS # 0.3 10*3/uL (0.0-0.4); EOS % 3.6 % (1.0-4.0); HEMATOCRIT 27.7 % (42.0-52.0); LYMPH # 0.9 10*3/uL (1.3-4.4); MEAN CELL VOLUME 87.9 fl (80.0-94.0); MEAN CORPUSCULAR HGB 24.8 pg (27.0-31.0); MEAN CORPUSCULAR HGB CONC 28.2 g/dl (33.0-37.0); MEAN PLATELET VOLUME 11.5 fl (9.6-12.3); MONO % 12.2 % (3.0-9.0); NEUT # 6.1 10*3/uL (2.3-7.9); NEUT % 72.5 % (47.0-73.0); PLATELET COUNT AUTOMATED 187 10*3/uL (130-400); RED BLOOD COUNT 3.15 10*6/uL (4.50-5.90); RED CELL DISTRI WIDTH 17.7 % (0-14.5); WHITE BLOOD COUNT 8.4 10*3/uL (4.8-10.8)
[2020-05-11 06:45] LABS: CREATININE 1.51 mg/dL (0.70-1.30); POTASSIUM 4.2 mmol/L (3.5-5.1)
--- NOTE | 2020-05-11 06:50 | NUR ---
PATIENT STATES HE IS FREEZING ALL OF THE SUDDEN. RECHECKED PATIENT BLOOD SUGAR. BLOOD SUGAR 98. WILL CONTINUE TO MONITOR.
--- NOTE | 2020-05-11 06:57 | NUR ---
PATIENT GIVEN TAP WATER ENEMA AT THIS TIME. PATIENT TOLERATED WELL. ASSISTED TO BSC.
--- NOTE | 2020-05-11 08:35 | NUR ---
ADMINISTERED TAP WATER ENEMA IN PREPARATION FOR COLONOSCOPY. RESULTS CLEAR WITH SOME YELLOW MUCOUS STRANDS.
--- NOTE | 2020-05-11 09:00 | NUR ---
CM in to see patient. No new needs or request at this time. When medically stable he will be discharged to home with the resumption of his [facility].
--- NOTE | 2020-05-11 09:18 | NUR ---
PATIENT TO OR FOR COLONOSCOPY BY BED AT THIS TIME.
--- NOTE | 2020-05-11 10:45 | NUR ---
PATIENT RETURNED FROM OR PROCEDURE, RESUMING MEDS AND DIET.
--- NOTE | 2020-05-11 11:36 | NUR ---
MEDICATED WITH PRN PO TYLENOL FOR TAILBONE/BUTTOCKS PAIN R/T USING BSC FREQUENTLY EARLY THIS MORNING.
--- NOTE | 2020-05-11 12:30 | NUR ---
PRN PO TYLENOL EFFECTIVE, PER PATIENT.
--- NOTE | 2020-05-11 20:30 | NUR ---
NOTIFIED DR. SEVERINO THAT PATIENT IS C/O SOB AND ABDOMINAL TENDERNESS. PATIENT VITAL SIGNS STABLE. PATIENT STATES HE CANT TAKE A DEEP BREATH BECAUSE OF THE ABDOMINAL PAIN. ON ASSESSMENT, PATIENT DOES SEEM TO BE SOB ALTHOUGH HE IS 99% ON6L HIGH FLOW NASAL CANNULA. PATIENT STATES HE CAN NOT SIT BACK BECAUSE HE CANNOT BREATHE. ABDOMEN DISTENDED AND FIRM. HYPERACTIVE BOWEL SOUNDS X4. DR. SEVERINO TO COME SEE PATIENT.
--- NOTE | 2020-05-11 20:40 | NUR ---
DR. SEVERINO INTO SEE PATIENT. SEE NEW ORDERS.
--- NOTE | 2020-05-11 21:00 | NUR ---
PATIENT OFF FLOOR FOR KUB AT THIS TIME.
[2020-05-12] VITALS: BP 99/48
--- NOTE | 2020-05-12 00:28 | NUR ---
PATIENT SITTING UP IN CHAIR. PATIENT STATES HE STILL IS FEELING SOB AND IS STILL BLOATED BUT FEELING A LITTLE BETTER. NO OTHER COMPLAINTS AT THIS TIME. WILL CONTINUE TO MONITOR.
--- NOTE | 2020-05-12 04:00 | NUR ---
PATIENT SLEEPING, NO SIGNS OF DISTRESS. WILL CONTINUE TO MONITOR.
[2020-05-12 06:15] LABS: BASO # 0.1 10*3/uL (0.0-0.1); BASO % 0.6 % (0.0-1.0); EOS # 0.3 10*3/uL (0.0-0.4); EOS % 3.8 % (1.0-4.0); HEMATOCRIT 27.3 % (42.0-52.0); LYMPH # 0.9 10*3/uL (1.3-4.4); LYMPH % 11.6 % (27.0-41.0); MEAN CELL VOLUME 88.9 fl (80.0-94.0); MEAN CORPUSCULAR HGB 24.8 pg (27.0-31.0); MEAN CORPUSCULAR HGB CONC 27.8 g/dl (33.0-37.0); MEAN PLATELET VOLUME 11.8 fl (9.6-12.3); MONO % 12.3 % (3.0-9.0); NEUT # 5.6 10*3/uL (2.3-7.9); NEUT % 71.3 % (47.0-73.0); PLATELET COUNT AUTOMATED 204 10*3/uL (130-400); RED BLOOD COUNT 3.07 10*6/uL (4.50-5.90); RED CELL DISTRI WIDTH 17.7 % (0-14.5); WHITE BLOOD COUNT 7.9 10*3/uL (4.8-10.8)
[2020-05-12 06:25] LABS: CREATININE 1.58 mg/dL (0.70-1.30); POTASSIUM 4.7 mmol/L (3.5-5.1)
--- NOTE | 2020-05-12 07:30 | NUR ---
TOOK OVER CARE OF PT AT THIS TIME. PT RESTING IN CHAIR.. RESPIRATIONS EASY AND UNLABORED ON 6L HFNC. PT DENIES SHORTNESS OF BREATH AT REST.WILL CONTINUE TO MONITOR. CALL LIGHT IN REACH.
[2020-05-12 08:00] VITALS: BP 102/61
--- NOTE | 2020-05-12 10:38 | NUR ---
CM called to speak to patient via phone. Discussed with patient about going to a SNF with his high flow O2. He adamantly refuses going to a SNF. He states he will return home with the resumption of his [facility]. Explained Dr. Randle was also going to speak with him about going to a SNF.
--- NOTE | 2020-05-12 11:14 | NUR ---
PHYSICAL THERAPY Eval order received attempeted to see patient at the bedside, spoke with nurse Joy to defer therapy until after pt goes for stat chest xray due to incrased SOB will follow Marla Tinsley PT
[2020-05-12 12:00] VITALS: BP 121/56
--- NOTE | 2020-05-12 12:35 | NUR ---
PHYSICAL THERAPY Physical Therapy evaluation completed on 5th floor with full evaluation to follow. Recommend physical therapy per plan of care and SNF upon discharge. Thank you for this referral. Marla Tinsley PT
--- NOTE | 2020-05-12 12:50 | NUR ---
Occupational Therapy evaluation completed on five with full evaluation to follow. Recommend occupational therapy per plan of care and SNF upon discharge. Thank you for this referral. Meghann Barnard OTR/L
--- NOTE | 2020-05-12 13:00 | NUR ---
PT SUPPLEMENTAL OXYGEN TITRATED FROM 6L TO 5L PER REQUEST OF DR HEDRICK. WILL MONITOR FOR PT TOLERANCE.
[2020-05-12 16:00] VITALS: BP 104/48
--- NOTE | 2020-05-12 17:04 | NUR ---
PT SITTING UP IN CHAIR. EVENING MEDS TAKEN WITH EASE. NO S/S OF DISTRESS OR SHORTNESS OF BREATH NOTED AT REST. PT ON 5L NC AT THIS TIME. WILL CONTINUE TO MONITOR PT. CALL LIGHT IN REACH.
--- NOTE | 2020-05-12 17:55 | NUR ---
THOMPSON CATHETER REMOVED AT THIS TIME. PT TOLERATED WELL.
[2020-05-12 20:00] VITALS: BP 135/72
[2020-05-13] VITALS: BP 106/40; BP 91/66
--- NOTE | 2020-05-13 07:30 | NUR ---
TOOK OVER CARE OF PT AT THIS TIME. PT RESTING IN BED. RESPIRATIONS EASY AND UNLABORED ON 5L NC. WILL CONTINUE TO MONITOR. CALL LIGHT IN REACH.
[2020-05-13 08:00] VITALS: BP 105/58
--- NOTE | 2020-05-13 08:30 | NUR ---
PHYSICAL THERAPY Patient seen this am 1:1 for therapy visit and was sitting up in bedside chair upon therapist arrival. Patient identified by name / and reports chronic B LE joint aches / pains but not painful enough to rate on 0-10 pain scale. Patient presents with continuos O2-5L via NC, recording SpO2 94%, HR 82 bpm. Patient transfers sit to stand, SBA, demonstrating slow initial rise due to B knee aches / stiffness. Patient ambulates with use of wh walker, CGA, 20'x 2 to bathroom, demonstrating slow steady dulce. Patient performed toilet transfer, SBA, however needed v/c to improve safe transfer secondary to "plopping" down on seat without use of L side grab bar. Patient returned to bedside chair, mild fatigue and remained with call light, tray table and telephone. Will continue per POC as tolerated, total treatment time 17 minutes. Timothy Roach, MAILING JOGGER
--- NOTE | 2020-05-13 08:45 | NUR ---
OT NOTE Pt was seen this A.M. 1:1 for 25 minute OT session. Upon arrival pt was sitting upright in the recliner. Pt identified by name and and had complaints of BLE "chronic" joint pain which he was unable to rate at this time. Pt presented to therapy with continuous 5L-O2 via NC which he remained on throughout the entire session. While sitting in the recliner requested for pt to doff and jorge B socks pt was able to complete with SBA. However pt completed by forward flexing at the waist resulting in pt feeling SOB. Pt was educated on energy conservation technique of bringing his leg up to knee level which pt was still able to complete with SBA and voiced understanding of energy conservation. Sit to stand completed from chair level with CGA and use of w/w for UE support. Upon inital rise pt presented with one LOB to the right that required Caitlyn to correct. Functional mobility completed to the bathroom with CGA and use of w/w. There he transferred on/off standard commode with CGA and use of w/w. Pt then stood while completing toileting task with CGA. Functional mobility completed back to the recliner with CGA and use of w/w. Pt's SpO2 read 95% and heart rate 80 bpm. Pt was left sitting upright in the recliner with call light in hand, tray table in place, and phone in reach. Continue with rec D/C plan to SNF. TRENTON Arevalo/Bhavana
[2020-05-13 10:32] LABS: BASO # 0.1 10*3/uL (0.0-0.1); BASO % 0.6 % (0.0-1.0); EOS # 0.2 10*3/uL (0.0-0.4); HEMATOCRIT 25.8 % (42.0-52.0); LYMPH # 0.9 10*3/uL (1.3-4.4); LYMPH % 9.7 % (27.0-41.0); MEAN CELL VOLUME 88.7 fl (80.0-94.0); MEAN CORPUSCULAR HGB 24.7 pg (27.0-31.0); MEAN CORPUSCULAR HGB CONC 27.9 g/dl (33.0-37.0); MEAN PLATELET VOLUME 11.2 fl (9.6-12.3); MONO % 11.4 % (3.0-9.0); NEUT # 6.8 10*3/uL (2.3-7.9); PLATELET COUNT AUTOMATED 217 10*3/uL (130-400); RED BLOOD COUNT 2.91 10*6/uL (4.50-5.90); RED CELL DISTRI WIDTH 17.7 % (0-14.5); WHITE BLOOD COUNT 8.9 10*3/uL (4.8-10.8)
--- NOTE | 2020-05-13 10:40 | NUR ---
ABULATORY PULSE OX: 5L NC AT REST: SPO2 98% HR 80 RR 16 BP 106/62 5L NC WITH AMBULATION: SPO2 91-94% HR 98 PT. UNALBE TO AMBULATE MORE THAN 50FT. C/O DIZZINESS. RETURNED TO ROOM. RECOVERY SPO2 ON 5L NC 96% HR 88 RR 20 BP 105/60. RN NOTIFIED.
[2020-05-13 10:44] LABS: ALBUMIN 2.9 gm/dl (3.1-4.5); CREATININE 1.76 mg/dL (0.70-1.30); POTASSIUM 3.9 mmol/L (3.5-5.1)
[2020-05-13 12:00] VITALS: BP 106/47
[2020-05-13] MEDS ORDERED: FUROSEMIDE40 MG PO (13:07)
[2020-05-13] MEDS ORDERED: METOPROLOL SUCC25 M2 PO (13:07)
[2020-05-13] MEDS ORDERED: Carafate1 GM PO (13:07)
[2020-05-13] MEDS ORDERED: PACERONE200 MG PO (13:07)
[2020-05-13] MEDS ORDERED: KLOR-CON M2020 ME1 PO (13:07)
[2020-05-13] MEDS ORDERED: BRILINTA90 M1 PO (13:09)
--- NOTE | 2020-05-13 13:56 | NUR ---
Faxed discharge instructions to [facility].
--- NOTE | 2020-05-13 14:50 | NUR ---
Discharge instructions reviewed with patient/family. Patient receptive and verbalizes understanding. Follow-up care arranged. Written instructions given to patient/family. JERE OJEDA
--- NOTE | 2020-05-13 14:55 | NUR ---
PT TAKEN DOWN TO CAR IN FRONT LOBBY PARKING LOT VIA WC FOR DISCHARGE.
--- NOTE | 2020-05-13 15:41 | NUR ---
PHYSICAL THERAPY CO-SIGN I approve of the Physical Therapy notes written above. Marla Tinsley PT
--- NOTE | 2020-05-13 15:48 | NUR ---
OCCUPATIONAL THERAPY CO-SIGN I approve of the Occupational Therapy notes written above. PARUL ROSE, OTR/L
== END 2020-05-13 14:55 | disposition home health service (06) | DRG 291 ==
LOC: ED 01:15 → 5E 03:41 → ICCU 03:41 → EDHOLD 03:41 → 5E 12:19 → ICCU 05-01 10:08 → 5E 05-03 18:12
PROVIDERS: Hospitalist; Internal Medicine; Internal Medicine Critical Care Medicine; Internal Medicine Gastroenterology; Internal Medicine Nephrology; Registered Nurse; Student in an Organized Health Care Education/Training Program; ADMIT Emergency Medicine; ATTEND Emergency Medicine
PROC: 30233N1 Transfusion of Nonautologous Red Blood Cells into Peripheral Vein, Percutaneous Approach (ICD-10-PCS; 2020-04-30)
PROC: 5A09357 Assistance with Respiratory Ventilation, Less than 24 Consecutive Hours, Continuous Positive Airway Pressure (ICD-10-PCS; 2020-04-30)
PROC: 5A0935A Assistance with Respiratory Ventilation, Less than 24 Consecutive Hours, High Flow/Velocity Cannula (ICD-10-PCS; 2020-04-30)
PROC: 5A09357 Assistance with Respiratory Ventilation, Less than 24 Consecutive Hours, Continuous Positive Airway Pressure (ICD-10-PCS; 2020-05-01)
PROC: 5A0935A Assistance with Respiratory Ventilation, Less than 24 Consecutive Hours, High Flow/Velocity Cannula (ICD-10-PCS; 2020-05-01)
PROC: 5A09357 Assistance with Respiratory Ventilation, Less than 24 Consecutive Hours, Continuous Positive Airway Pressure (ICD-10-PCS; 2020-05-02)
PROC: 5A0935A Assistance with Respiratory Ventilation, Less than 24 Consecutive Hours, High Flow/Velocity Cannula (ICD-10-PCS; 2020-05-02)
PROC: 5A09357 Assistance with Respiratory Ventilation, Less than 24 Consecutive Hours, Continuous Positive Airway Pressure (ICD-10-PCS; 2020-05-03)
PROC: 5A0935A Assistance with Respiratory Ventilation, Less than 24 Consecutive Hours, High Flow/Velocity Cannula (ICD-10-PCS; 2020-05-03)
PROC: 5A09357 Assistance with Respiratory Ventilation, Less than 24 Consecutive Hours, Continuous Positive Airway Pressure (ICD-10-PCS; 2020-05-04)
PROC: 5A0935A Assistance with Respiratory Ventilation, Less than 24 Consecutive Hours, High Flow/Velocity Cannula (ICD-10-PCS; 2020-05-04)
PROC: 5A09357 Assistance with Respiratory Ventilation, Less than 24 Consecutive Hours, Continuous Positive Airway Pressure (ICD-10-PCS; 2020-05-05)
PROC: 5A0935A Assistance with Respiratory Ventilation, Less than 24 Consecutive Hours, High Flow/Velocity Cannula (ICD-10-PCS; 2020-05-05)
PROC: 5A09357 Assistance with Respiratory Ventilation, Less than 24 Consecutive Hours, Continuous Positive Airway Pressure (ICD-10-PCS; 2020-05-06)
PROC: 5A0935A Assistance with Respiratory Ventilation, Less than 24 Consecutive Hours, High Flow/Velocity Cannula (ICD-10-PCS; 2020-05-06)
PROC: 0DB78ZX Excision of Stomach, Pylorus, Via Natural or Artificial Opening Endoscopic, Diagnostic (ICD-10-PCS; principal; 2020-05-10)
PROC: 0DBK8ZZ Excision of Ascending Colon, Via Natural or Artificial Opening Endoscopic (ICD-10-PCS; 2020-05-11)
PROC: 5A0945A Assistance with Respiratory Ventilation, 24-96 Consecutive Hours, High Flow/Velocity Cannula (ICD-10-PCS; 2020-05-12)
DX: I13.0 Hypertensive heart and chronic kidney disease with heart failure and stage 1 through stage 4 chronic kidney disease, or unspecified chronic kidney disease (principal); N17.0 Acute kidney failure with tubular necrosis; E43 Unspecified severe protein-calorie malnutrition; J96.21 Acute and chronic respiratory failure with hypoxia; I50.43 Acute on chronic combined systolic (congestive) and diastolic (congestive) heart failure; R65.10 Systemic inflammatory response syndrome (SIRS) of non-infectious origin without acute organ dysfunction; E44.0 Moderate protein-calorie malnutrition; I25.810 Atherosclerosis of coronary artery bypass graft(s) without angina pectoris; K92.1 Melena; E87.1 Hypo-osmolality and hyponatremia; D64.9 Anemia, unspecified; K76.0 Fatty (change of) liver, not elsewhere classified; K21.9 Gastro-esophageal reflux disease without esophagitis; E11.649 Type 2 diabetes mellitus with hypoglycemia without coma; E11.22 Type 2 diabetes mellitus with diabetic chronic kidney disease; E78.5 Hyperlipidemia, unspecified; D47.3 Essential (hemorrhagic) thrombocythemia; F17.210 Nicotine dependence, cigarettes, uncomplicated; K29.70 Gastritis, unspecified, without bleeding; K44.9 Diaphragmatic hernia without obstruction or gangrene; K22.70 Barrett's esophagus without dysplasia; E66.01 Morbid (severe) obesity due to excess calories; I25.5 Ischemic cardiomyopathy; I48.0 Paroxysmal atrial fibrillation; G47.33 Obstructive sleep apnea (adult) (pediatric); N18.30 Chronic kidney disease, stage 3 unspecified; E87.6 Hypokalemia; R31.9 Hematuria, unspecified; I27.20 Pulmonary hypertension, unspecified; E11.69 Type 2 diabetes mellitus with other specified complication; E55.9 Vitamin D deficiency, unspecified; E11.65 Type 2 diabetes mellitus with hyperglycemia; E11.49 Type 2 diabetes mellitus with other diabetic neurological complication; Z99.81 Dependence on supplemental oxygen; Z95.1 Presence of aortocoronary bypass graft; Z88.8 Allergy status to other drugs, medicaments and biological substances; Z95.5 Presence of coronary angioplasty implant and graft; Z83.3 Family history of diabetes mellitus; Z82.49 Family history of ischemic heart disease and other diseases of the circulatory system; Z82.3 Family history of stroke; Z80.6 Family history of leukemia; Z79.82 Long term (current) use of aspirin; Z79.899 Other long term (current) drug therapy; Z71.6 Tobacco abuse counseling; I25.2 Old myocardial infarction

== ENCOUNTER 2020-05-30 19:53 | Inpatient (IN) | payer OTHER ==
[~2020-05-30] VITALS: Ht 180 cm; Wt 140.2 kg
[~2020-05-30 19:53] MED LIST changes: +BRILINTA90 M1 PO; +Carafate1 GM PO; +FUROSEMIDE40 MG PO; +INSULIN LI100 UNIT/2 SQ; +METOPROLOL SUCC25 M2 PO; +PACERONE200 MG PO
[2020-05-30 19:59] VITALS: BP 134/78
[2020-05-30 20:16] VITALS: BP 95/58
[2020-05-30 20:26] LABS: HEMATOCRIT 23.7 % (42.0-52.0); MEAN CELL VOLUME 84.3 fl (80.0-94.0); MEAN CORPUSCULAR HGB 22.4 pg (27.0-31.0); MEAN CORPUSCULAR HGB CONC 26.6 g/dl (33.0-37.0); MEAN PLATELET VOLUME 10.3 fl (9.6-12.3); NUCLEATED RED BLOOD CELL 0.2 10*3/uL (0.0-0.0); NUCLEATED RED BLOOD CELL 1.4 % (0.0-0.0); PLATELET COUNT AUTOMATED 399 10*3/uL (130-400); RED BLOOD COUNT 2.81 10*6/uL (4.50-5.90); RED CELL DISTRI WIDTH 19.7 % (0-14.5); WHITE BLOOD COUNT 11.5 10*3/uL (4.8-10.8)
[2020-05-30 20:56] LABS: PLATELET SUFFICIENCY NORMAL (NORMAL); TOTAL CELLS COUNTED 100 #CELLS
[2020-05-30 20:58] LABS: ALBUMIN 2.9 gm/dl (3.1-4.5); CREATININE 1.94 mg/dL (0.70-1.30); POTASSIUM 4.2 mmol/L (3.5-5.1); TOTAL PROTEIN 7.4 gm/dL (6.4-8.2)
[2020-05-30 21:07] LABS: TROPONIN I 0.048 ng/ml (<0.045)
[2020-05-30 22:14] VITALS: BP 102/59
[2020-05-30 23:16] VITALS: BP 111/69
[2020-05-31] VITALS (21 sets, daily range): BP systolic 94–128; BP diastolic 57–79
[2020-05-31 00:57] LABS: BILIRUBIN Negative (Negative); BLOOD Negative (Negative); CLARITY Clear (Clear); COLOR Yellow (Yellow); GLUCOSE 3+ (Negative); KETONE Negative (Negative); LEUKO ESTERASE Negative (Negative); NITRITE Negative (Negative); SPECIFIC GRAVITY 1.015 (1.001-1.030)
[2020-05-31 01:07] LABS: WBC 0-2 wbc/hpf (0-5)
[2020-05-31 06:54] LABS: HEMATOCRIT 25.1 % (42.0-52.0); MEAN CORPUSCULAR HGB 22.2 pg (27.0-31.0); MEAN CORPUSCULAR HGB CONC 27.1 g/dl (33.0-37.0); MEAN PLATELET VOLUME 9.8 fl (9.6-12.3); NUCLEATED RED BLOOD CELL 0.2 10*3/uL (0.0-0.0); NUCLEATED RED BLOOD CELL 1.4 % (0.0-0.0); PLATELET COUNT AUTOMATED 366 10*3/uL (130-400); RED BLOOD COUNT 3.06 10*6/uL (4.50-5.90); RED CELL DISTRI WIDTH 19.2 % (0-14.5); WHITE BLOOD COUNT 11.4 10*3/uL (4.8-10.8)
[2020-05-31 07:03] LABS: ACT PARTIAL THROMBO TIME 35.4 SECONDS (20.0-32.1); INTERNATIONAL NORM RATIO 1.1 (2.0-3.5)
[2020-05-31 07:10] LABS: ALBUMIN 2.9 gm/dl (3.1-4.5); CREATININE 1.83 mg/dL (0.70-1.30); TOTAL PROTEIN 7.1 gm/dL (6.4-8.2)
[2020-05-31 07:18] LABS: THYROID STIM HORMONE (HS) 5.11 uIU/ml (0.358-4.75)
[2020-05-31 07:47] LABS: BASOPHILS 2 % (0-1); PLATELET SUFFICIENCY NORMAL (NORMAL); POLYCHROMASIA SLIGHT; TOTAL CELLS COUNTED 100 #CELLS
[2020-05-31 07:48] LABS: OVALOCYTES FEW
[2020-05-31 09:39] LABS: ABG BASE EXCESS 7.6 mmol/L (-2.0-2.0); ARTERIAL BLOOD GAS PH 7.393 (7.35-7.45)
[2020-05-31 16:09] LABS: HEMATOCRIT 27.2 % (42.0-52.0)
[2020-05-31 22:15] LABS: HEMATOCRIT 27.1 % (42.0-52.0); MEAN CELL VOLUME 83.6 fl (80.0-94.0); MEAN CORPUSCULAR HGB 22.8 pg (27.0-31.0); MEAN CORPUSCULAR HGB CONC 27.3 g/dl (33.0-37.0); MEAN PLATELET VOLUME 9.9 fl (9.6-12.3); NUCLEATED RED BLOOD CELL 0.2 10*3/uL (0.0-0.0); PLATELET COUNT AUTOMATED 325 10*3/uL (130-400); RED BLOOD COUNT 3.24 10*6/uL (4.50-5.90); RED CELL DISTRI WIDTH 18.7 % (0-14.5); WHITE BLOOD COUNT 10.9 10*3/uL (4.8-10.8)
[2020-05-31 22:33] LABS: TOTAL CELLS COUNTED 100 #CELLS
[2020-05-31 22:34] LABS: MICROCYTOSIS SLIGHT; PLATELET SUFFICIENCY NORMAL (NORMAL); POLYCHROMASIA SLIGHT
[2020-06-01 03:55] VITALS: BP 109/60
[2020-06-01 06:00] LABS: ALBUMIN 2.9 gm/dl (3.1-4.5); CREATININE 1.77 mg/dL (0.70-1.30); POTASSIUM 3.3 mmol/L (3.5-5.1); TOTAL PROTEIN 6.9 gm/dL (6.4-8.2)
[2020-06-01 06:01] LABS: HEMATOCRIT 26.3 % (42.0-52.0); MEAN CELL VOLUME 83.8 fl (80.0-94.0); MEAN CORPUSCULAR HGB 22.6 pg (27.0-31.0); MEAN PLATELET VOLUME 10.4 fl (9.6-12.3); NUCLEATED RED BLOOD CELL 0.2 10*3/uL (0.0-0.0); NUCLEATED RED BLOOD CELL 1.8 % (0.0-0.0); PLATELET COUNT AUTOMATED 314 10*3/uL (130-400); RED BLOOD COUNT 3.14 10*6/uL (4.50-5.90); RED CELL DISTRI WIDTH 19.1 % (0-14.5); WHITE BLOOD COUNT 9.7 10*3/uL (4.8-10.8)
[2020-06-01 08:16] LABS: BASOPHILS 3 % (0-1); PLATELET SUFFICIENCY NORMAL (NORMAL); POLYCHROMASIA SLIGHT; TOTAL CELLS COUNTED 100 #CELLS
[2020-06-01 09:13] VITALS: BP 117/70
[2020-06-01 10:33] VITALS: BP 110/69
[2020-06-01 14:43] VITALS: BP 101/67
[2020-06-01 21:23] VITALS: BP 95/54
[2020-06-01 23:23] VITALS: BP 110/71
[2020-06-02] VITALS (16 sets, daily range): BP systolic 19–120; BP diastolic 50–82
[2020-06-02 05:10] LABS: ALBUMIN 2.7 gm/dl (3.1-4.5); CREATININE 1.58 mg/dL (0.70-1.30); POTASSIUM 3.5 mmol/L (3.5-5.1); TOTAL PROTEIN 6.8 gm/dL (6.4-8.2)
[2020-06-02 06:11] LABS: BASO # 0.1 10*3/uL (0.0-0.1); BASO % 0.6 % (0.0-1.0); EOS # 0.1 10*3/uL (0.0-0.4); EOS % 1.4 % (1.0-4.0); HEMATOCRIT 25.9 % (42.0-52.0); LYMPH # 0.9 10*3/uL (1.3-4.4); LYMPH % 8.7 % (27.0-41.0); MEAN CELL VOLUME 84.1 fl (80.0-94.0); MEAN CORPUSCULAR HGB 22.7 pg (27.0-31.0); MEAN PLATELET VOLUME 10.4 fl (9.6-12.3); MONO # 1.2 10*3/uL (0.1-1.0); NEUT # 7.9 10*3/uL (2.3-7.9); NEUT % 76.9 % (47.0-73.0); NUCLEATED RED BLOOD CELL 0.1 10*3/uL (0.0-0.0); NUCLEATED RED BLOOD CELL 0.8 % (0.0-0.0); PLATELET COUNT AUTOMATED 290 10*3/uL (130-400); RED BLOOD COUNT 3.08 10*6/uL (4.50-5.90); RED CELL DISTRI WIDTH 19.6 % (0-14.5); WHITE BLOOD COUNT 10.3 10*3/uL (4.8-10.8)
[2020-06-03] VITALS: BP 110/72
[2020-06-03 07:09] LABS: BASO # 0.1 10*3/uL (0.0-0.1); BASO % 0.7 % (0.0-1.0); EOS # 0.2 10*3/uL (0.0-0.4); EOS % 2.7 % (1.0-4.0); HEMATOCRIT 27.7 % (42.0-52.0); LYMPH # 0.7 10*3/uL (1.3-4.4); LYMPH % 8.5 % (27.0-41.0); MEAN CELL VOLUME 84.5 fl (80.0-94.0); MEAN CORPUSCULAR HGB 23.2 pg (27.0-31.0); MEAN CORPUSCULAR HGB CONC 27.4 g/dl (33.0-37.0); MEAN PLATELET VOLUME 10.2 fl (9.6-12.3); MONO # 1.1 10*3/uL (0.1-1.0); MONO % 12.7 % (3.0-9.0); NEUT # 6.5 10*3/uL (2.3-7.9); NEUT % 74.7 % (47.0-73.0); NUCLEATED RED BLOOD CELL 0.1 10*3/uL (0.0-0.0); NUCLEATED RED BLOOD CELL 0.6 % (0.0-0.0); PLATELET COUNT AUTOMATED 267 10*3/uL (130-400); RED BLOOD COUNT 3.28 10*6/uL (4.50-5.90); RED CELL DISTRI WIDTH 19.4 % (0-14.5); WHITE BLOOD COUNT 8.7 10*3/uL (4.8-10.8)
[2020-06-03 08:00] VITALS: BP 104/50
[2020-06-03 08:01] LABS: ALBUMIN 2.8 gm/dl (3.1-4.5); CREATININE 1.65 mg/dL (0.70-1.30); POTASSIUM 3.3 mmol/L (3.5-5.1); TOTAL PROTEIN 6.8 gm/dL (6.4-8.2)
[2020-06-03 12:00] VITALS: BP 107/55
[2020-06-03 12:35] VITALS: BP 104/50
[2020-06-03 16:00] VITALS: BP 106/63
[2020-06-03 20:00] VITALS: BP 129/63
[2020-06-04] VITALS: BP 137/84
[2020-06-04 06:43] LABS: BASO # 0.1 10*3/uL (0.0-0.1); BASO % 0.5 % (0.0-1.0); EOS # 0.3 10*3/uL (0.0-0.4); EOS % 2.7 % (1.0-4.0); HEMATOCRIT 28.5 % (42.0-52.0); LYMPH # 0.8 10*3/uL (1.3-4.4); LYMPH % 8.3 % (27.0-41.0); MEAN CELL VOLUME 86.6 fl (80.0-94.0); MEAN CORPUSCULAR HGB 23.7 pg (27.0-31.0); MEAN CORPUSCULAR HGB CONC 27.4 g/dl (33.0-37.0); MEAN PLATELET VOLUME 10.3 fl (9.6-12.3); MONO # 1.2 10*3/uL (0.1-1.0); MONO % 11.7 % (3.0-9.0); NEUT # 7.8 10*3/uL (2.3-7.9); NEUT % 76.4 % (47.0-73.0); NUCLEATED RED BLOOD CELL 0.1 10*3/uL (0.0-0.0); NUCLEATED RED BLOOD CELL 0.5 % (0.0-0.0); PLATELET COUNT AUTOMATED 241 10*3/uL (130-400); RED BLOOD COUNT 3.29 10*6/uL (4.50-5.90); RED CELL DISTRI WIDTH 20.5 % (0-14.5); WHITE BLOOD COUNT 10.2 10*3/uL (4.8-10.8)
[2020-06-04 07:07] LABS: ALBUMIN 2.8 gm/dl (3.1-4.5); CREATININE 1.48 mg/dL (0.70-1.30); POTASSIUM 3.5 mmol/L (3.5-5.1)
[2020-06-04 08:00] VITALS: BP 111/69
[2020-06-04 12:00] VITALS: BP 109/62
[2020-06-04 16:00] VITALS: BP 118/65
[2020-06-04 20:00] VITALS: BP 113/69
[2020-06-05] VITALS: BP 121/98
[2020-06-05 06:37] LABS: BASO # 0.1 10*3/uL (0.0-0.1); BASO % 0.5 % (0.0-1.0); EOS # 0.2 10*3/uL (0.0-0.4); EOS % 2.5 % (1.0-4.0); LYMPH # 0.7 10*3/uL (1.3-4.4); LYMPH % 6.9 % (27.0-41.0); MEAN CELL VOLUME 86.2 fl (80.0-94.0); MEAN CORPUSCULAR HGB 23.4 pg (27.0-31.0); MEAN CORPUSCULAR HGB CONC 27.1 g/dl (33.0-37.0); MEAN PLATELET VOLUME 10.3 fl (9.6-12.3); MONO # 1.2 10*3/uL (0.1-1.0); MONO % 11.8 % (3.0-9.0); NEUT # 7.6 10*3/uL (2.3-7.9); NEUT % 77.7 % (47.0-73.0); NUCLEATED RED BLOOD CELL 0.1 10*3/uL (0.0-0.0); NUCLEATED RED BLOOD CELL 0.6 % (0.0-0.0); PLATELET COUNT AUTOMATED 230 10*3/uL (130-400); RED BLOOD COUNT 3.25 10*6/uL (4.50-5.90); RED CELL DISTRI WIDTH 20.4 % (0-14.5); WHITE BLOOD COUNT 9.8 10*3/uL (4.8-10.8)
[2020-06-05 07:06] LABS: CREATININE 1.43 mg/dL (0.70-1.30); POTASSIUM 3.6 mmol/L (3.5-5.1)
[2020-06-05 08:00] VITALS: BP 113/69
[2020-06-05 12:00] VITALS: BP 114/54
[2020-06-05 16:00] VITALS: BP 93/78
[2020-06-05 20:00] VITALS: BP 122/74
[2020-06-06] VITALS: BP 111/67
[2020-06-06 06:52] LABS: BASO % 0.3 % (0.0-1.0); EOS # 0.1 10*3/uL (0.0-0.4); EOS % 1.5 % (1.0-4.0); HEMATOCRIT 28.4 % (42.0-52.0); LYMPH # 0.7 10*3/uL (1.3-4.4); LYMPH % 7.1 % (27.0-41.0); MEAN CELL VOLUME 87.7 fl (80.0-94.0); MEAN CORPUSCULAR HGB 23.5 pg (27.0-31.0); MEAN CORPUSCULAR HGB CONC 26.8 g/dl (33.0-37.0); MEAN PLATELET VOLUME 10.4 fl (9.6-12.3); MONO # 0.9 10*3/uL (0.1-1.0); MONO % 9.8 % (3.0-9.0); NEUT # 7.4 10*3/uL (2.3-7.9); NUCLEATED RED BLOOD CELL 0.1 10*3/uL (0.0-0.0); NUCLEATED RED BLOOD CELL 0.7 % (0.0-0.0); PLATELET COUNT AUTOMATED 231 10*3/uL (130-400); RED BLOOD COUNT 3.24 10*6/uL (4.50-5.90); RED CELL DISTRI WIDTH 20.7 % (0-14.5); WHITE BLOOD COUNT 9.2 10*3/uL (4.8-10.8)
[2020-06-06 07:00] LABS: CREATININE 1.53 mg/dL (0.70-1.30); POTASSIUM 4.5 mmol/L (3.5-5.1)
[2020-06-06 08:00] VITALS: BP 124/90
[2020-06-06 12:00] VITALS: BP 113/61
[2020-06-06 16:00] VITALS: BP 122/67
[2020-06-06 20:00] VITALS: BP 115/75
[2020-06-07] VITALS: BP 119/77
[2020-06-07 12:00] VITALS: BP 112/69
[2020-06-07 16:21] VITALS: BP 135/81
[2020-06-07 20:00] VITALS: BP 107/62
[2020-06-08] VITALS: BP 102/57
[2020-06-08 05:36] VITALS: BP 131/84
[2020-06-08 08:00] VITALS: BP 116/74
[2020-06-08 08:22] LABS: BASO % 0.3 % (0.0-1.0); EOS # 0.1 10*3/uL (0.0-0.4); EOS % 0.9 % (1.0-4.0); HEMATOCRIT 28.8 % (42.0-52.0); LYMPH # 0.5 10*3/uL (1.3-4.4); LYMPH % 5.2 % (27.0-41.0); MEAN CORPUSCULAR HGB 23.3 pg (27.0-31.0); MEAN CORPUSCULAR HGB CONC 26.7 g/dl (33.0-37.0); MEAN PLATELET VOLUME 10.6 fl (9.6-12.3); MONO # 0.8 10*3/uL (0.1-1.0); MONO % 8.9 % (3.0-9.0); NEUT # 7.7 10*3/uL (2.3-7.9); NEUT % 84.4 % (47.0-73.0); NUCLEATED RED BLOOD CELL 0.1 10*3/uL (0.0-0.0); NUCLEATED RED BLOOD CELL 0.5 % (0.0-0.0); PLATELET COUNT AUTOMATED 233 10*3/uL (130-400); RED BLOOD COUNT 3.31 10*6/uL (4.50-5.90); RED CELL DISTRI WIDTH 20.6 % (0-14.5); WHITE BLOOD COUNT 9.2 10*3/uL (4.8-10.8)
[2020-06-08 08:43] LABS: CREATININE 1.67 mg/dL (0.70-1.30); POTASSIUM 4.4 mmol/L (3.5-5.1); TOTAL PROTEIN 7.6 gm/dL (6.4-8.2)
[2020-06-08 10:33] LABS: ABG BASE EXCESS 6.7 mmol/L (-2.0-2.0); ARTERIAL BLOOD GAS PH 7.325 (7.35-7.45)
[2020-06-08 12:00] VITALS: BP 115/66
[2020-06-08 13:04] LABS: BILIRUBIN Negative (Negative); BLOOD Negative (Negative); CLARITY Clear (Clear); COLOR Yellow (Yellow); GLUCOSE Negative (Negative); KETONE Negative (Negative); LEUKO ESTERASE Trace (Negative); NITRITE Negative (Negative); PH 5.5 (4.5-8.0); SPECIFIC GRAVITY 1.015 (1.001-1.030)
[2020-06-08 13:23] LABS: BACTERIA 2+; HYALINE CAST 21-30
[2020-06-08 15:10] LABS: ABG BASE EXCESS 8.3 mmol/L (-2.0-2.0); ARTERIAL BLOOD GAS PH 7.395 (7.35-7.45)
[2020-06-08 16:00] VITALS: BP 100/67
[2020-06-08 20:00] VITALS: BP 96/64
[2020-06-08 20:34] LABS: ABG BASE EXCESS 9.6 mmol/L (-2.0-2.0); ARTERIAL BLOOD GAS PH 7.459 (7.35-7.45)
[2020-06-09] VITALS (8 sets, daily range): BP systolic 11–112; BP diastolic 61–75
[2020-06-09 06:10] LABS: ALBUMIN 2.6 gm/dl (3.1-4.5); CREATININE 1.7 mg/dL (0.70-1.30); TOTAL PROTEIN 6.5 gm/dL (6.4-8.2)
[2020-06-09 06:18] LABS: BASO # 0.1 10*3/uL (0.0-0.1); BASO % 0.7 % (0.0-1.0); EOS # 0.1 10*3/uL (0.0-0.4); EOS % 1.8 % (1.0-4.0); HEMATOCRIT 26.3 % (42.0-52.0); LYMPH # 0.6 10*3/uL (1.3-4.4); LYMPH % 8.2 % (27.0-41.0); MEAN CELL VOLUME 85.9 fl (80.0-94.0); MEAN CORPUSCULAR HGB 23.5 pg (27.0-31.0); MEAN CORPUSCULAR HGB CONC 27.4 g/dl (33.0-37.0); MEAN PLATELET VOLUME 10.7 fl (9.6-12.3); MONO # 0.9 10*3/uL (0.1-1.0); MONO % 11.6 % (3.0-9.0); NEUT % 77.4 % (47.0-73.0); NUCLEATED RED BLOOD CELL 0.5 % (0.0-0.0); PLATELET COUNT AUTOMATED 220 10*3/uL (130-400); RED BLOOD COUNT 3.06 10*6/uL (4.50-5.90); WHITE BLOOD COUNT 7.7 10*3/uL (4.8-10.8)
[2020-06-09 07:49] LABS: ABG BASE EXCESS 9.4 mmol/L (-2.0-2.0); ARTERIAL BLOOD GAS PH 7.434 (7.35-7.45)
[2020-06-09 14:03] LABS: ABG BASE EXCESS 9.6 mmol/L (-2.0-2.0); ARTERIAL BLOOD GAS PH 7.437 (7.35-7.45)
[2020-06-10] VITALS (12 sets, daily range): BP systolic 99–133; BP diastolic 63–82
[2020-06-10 05:50] LABS: ALBUMIN 2.6 gm/dl (3.1-4.5); CREATININE 1.71 mg/dL (0.70-1.30); POTASSIUM 3.8 mmol/L (3.5-5.1); TOTAL PROTEIN 6.4 gm/dL (6.4-8.2)
[2020-06-10 06:12] LABS: BASO # 0.1 10*3/uL (0.0-0.1); BASO % 0.6 % (0.0-1.0); EOS # 0.2 10*3/uL (0.0-0.4); EOS % 1.9 % (1.0-4.0); HEMATOCRIT 26.7 % (42.0-52.0); LYMPH # 0.6 10*3/uL (1.3-4.4); LYMPH % 7.5 % (27.0-41.0); MEAN CELL VOLUME 84.2 fl (80.0-94.0); MEAN CORPUSCULAR HGB 23.3 pg (27.0-31.0); MEAN CORPUSCULAR HGB CONC 27.7 g/dl (33.0-37.0); MEAN PLATELET VOLUME 10.7 fl (9.6-12.3); MONO # 1.1 10*3/uL (0.1-1.0); MONO % 13.7 % (3.0-9.0); NEUT # 5.9 10*3/uL (2.3-7.9); NEUT % 75.8 % (47.0-73.0); NUCLEATED RED BLOOD CELL 0.5 % (0.0-0.0); PLATELET COUNT AUTOMATED 245 10*3/uL (130-400); RED BLOOD COUNT 3.17 10*6/uL (4.50-5.90); RED CELL DISTRI WIDTH 21.2 % (0-14.5); WHITE BLOOD COUNT 7.8 10*3/uL (4.8-10.8)
[2020-06-10 07:33] LABS: ABG BASE EXCESS 8.5 mmol/L (-2.0-2.0); ARTERIAL BLOOD GAS PH 7.42 (7.35-7.45)
[2020-06-10 15:36] LABS: ABG BASE EXCESS 6.7 mmol/L (-2.0-2.0); ARTERIAL BLOOD GAS PH 7.363 (7.35-7.45)
[2020-06-10 17:58] LABS: ABG BASE EXCESS 7.4 mmol/L (-2.0-2.0); ARTERIAL BLOOD GAS PH 7.381 (7.35-7.45)
[2020-06-10 23:02] LABS: CREATININE 1.9 mg/dL (0.70-1.30); POTASSIUM 4.1 mmol/L (3.5-5.1)
[2020-06-11] VITALS (12 sets, daily range): BP systolic 96–123; BP diastolic 58–70
[2020-06-11 06:07] LABS: HEMATOCRIT 26.2 % (42.0-52.0); MEAN CELL VOLUME 85.3 fl (80.0-94.0); MEAN CORPUSCULAR HGB 22.8 pg (27.0-31.0); MEAN CORPUSCULAR HGB CONC 26.7 g/dl (33.0-37.0); MEAN PLATELET VOLUME 10.7 fl (9.6-12.3); NUCLEATED RED BLOOD CELL 0.1 10*3/uL (0.0-0.0); NUCLEATED RED BLOOD CELL 1.1 % (0.0-0.0); PLATELET COUNT AUTOMATED 259 10*3/uL (130-400); RED BLOOD COUNT 3.07 10*6/uL (4.50-5.90); RED CELL DISTRI WIDTH 21.1 % (0-14.5); WHITE BLOOD COUNT 7.9 10*3/uL (4.8-10.8)
[2020-06-11 06:16] LABS: ALBUMIN 2.8 gm/dl (3.1-4.5); CREATININE 1.9 mg/dL (0.70-1.30); POTASSIUM 4.1 mmol/L (3.5-5.1); TOTAL PROTEIN 6.4 gm/dL (6.4-8.2)
[2020-06-11 06:33] LABS: TOTAL CELLS COUNTED 100 #CELLS
[2020-06-11 06:34] LABS: OVALOCYTES FEW; PLATELET SUFFICIENCY NORMAL (NORMAL); POLYCHROMASIA SLIGHT; TARGET CELLS FEW
[2020-06-11 08:30] LABS: ABG BASE EXCESS 7.4 mmol/L (-2.0-2.0); ARTERIAL BLOOD GAS PH 7.442 (7.35-7.45)
[2020-06-11 14:46] LABS: ABG BASE EXCESS 9.5 mmol/L (-2.0-2.0); ARTERIAL BLOOD GAS PH 7.452 (7.35-7.45)
[2020-06-12] VITALS (20 sets, daily range): BP systolic 95–128; BP diastolic 56–79
[2020-06-12 06:08] LABS: HEMATOCRIT 25.2 % (42.0-52.0); MEAN CELL VOLUME 84.8 fl (80.0-94.0); MEAN CORPUSCULAR HGB 22.9 pg (27.0-31.0); MEAN PLATELET VOLUME 10.8 fl (9.6-12.3); NUCLEATED RED BLOOD CELL 0.1 10*3/uL (0.0-0.0); NUCLEATED RED BLOOD CELL 1.3 % (0.0-0.0); PLATELET COUNT AUTOMATED 277 10*3/uL (130-400); RED BLOOD COUNT 2.97 10*6/uL (4.50-5.90); RED CELL DISTRI WIDTH 21.2 % (0-14.5); WHITE BLOOD COUNT 9.1 10*3/uL (4.8-10.8)
[2020-06-12 06:26] LABS: ALBUMIN 3.1 gm/dl (3.1-4.5); CREATININE 1.89 mg/dL (0.70-1.30); POTASSIUM 4.2 mmol/L (3.5-5.1); TOTAL PROTEIN 6.6 gm/dL (6.4-8.2)
[2020-06-12 07:00] LABS: BASOPHILS 1 % (0-1); TOTAL CELLS COUNTED 100 #CELLS
[2020-06-12 07:01] LABS: OVALOCYTES FEW; PLATELET SUFFICIENCY NORMAL (NORMAL); POLYCHROMASIA SLIGHT; TARGET CELLS FEW
[2020-06-12 08:53] LABS: ABG BASE EXCESS 8.7 mmol/L (-2.0-2.0); ARTERIAL BLOOD GAS PH 7.468 (7.35-7.45)
[2020-06-12 15:31] LABS: HEMATOCRIT 28.3 % (42.0-52.0)
[2020-06-12 16:26] LABS: ABG BASE EXCESS 8.7 mmol/L (-2.0-2.0); ARTERIAL BLOOD GAS PH 7.455 (7.35-7.45)
[2020-06-13] VITALS (19 sets, daily range): BP systolic 93–130; BP diastolic 54–80
[2020-06-13 05:28] LABS: ALBUMIN 3.2 gm/dl (3.1-4.5); CREATININE 1.83 mg/dL (0.70-1.30); TOTAL PROTEIN 6.6 gm/dL (6.4-8.2)
[2020-06-13 06:27] LABS: HEMATOCRIT 26.6 % (42.0-52.0); MEAN CELL VOLUME 85.5 fl (80.0-94.0); MEAN CORPUSCULAR HGB 23.2 pg (27.0-31.0); MEAN CORPUSCULAR HGB CONC 27.1 g/dl (33.0-37.0); MEAN PLATELET VOLUME 11.2 fl (9.6-12.3); NUCLEATED RED BLOOD CELL 0.1 10*3/uL (0.0-0.0); NUCLEATED RED BLOOD CELL 1.1 % (0.0-0.0); PLATELET COUNT AUTOMATED 281 10*3/uL (130-400); RED BLOOD COUNT 3.11 10*6/uL (4.50-5.90); RED CELL DISTRI WIDTH 20.8 % (0-14.5)
[2020-06-13 06:59] LABS: OVALOCYTES FEW; PLATELET SUFFICIENCY NORMAL (NORMAL); POLYCHROMASIA SLIGHT; TOTAL CELLS COUNTED 100 #CELLS
[2020-06-13 07:00] LABS: TARGET CELLS FEW
[2020-06-13 08:48] LABS: ABG BASE EXCESS 9.1 mmol/L (-2.0-2.0); ARTERIAL BLOOD GAS PH 7.46 (7.35-7.45)
[2020-06-13 16:12] LABS: ABG BASE EXCESS 9.4 mmol/L (-2.0-2.0); ARTERIAL BLOOD GAS PH 7.487 (7.35-7.45)
[2020-06-13 18:40] LABS: BASO # 0.1 10*3/uL (0.0-0.1); BASO % 0.4 % (0.0-1.0); EOS # 0.1 10*3/uL (0.0-0.4); EOS % 0.5 % (1.0-4.0); HEMATOCRIT 30.1 % (42.0-52.0); LYMPH # 0.3 10*3/uL (1.3-4.4); LYMPH % 2.5 % (27.0-41.0); MEAN CELL VOLUME 83.4 fl (80.0-94.0); MEAN CORPUSCULAR HGB 23.5 pg (27.0-31.0); MEAN CORPUSCULAR HGB CONC 28.2 g/dl (33.0-37.0); MEAN PLATELET VOLUME 10.6 fl (9.6-12.3); MONO # 1.5 10*3/uL (0.1-1.0); MONO % 11.3 % (3.0-9.0); NEUT % 84.8 % (47.0-73.0); NUCLEATED RED BLOOD CELL 0.1 10*3/uL (0.0-0.0); NUCLEATED RED BLOOD CELL 0.5 % (0.0-0.0); PLATELET COUNT AUTOMATED 318 10*3/uL (130-400); RED BLOOD COUNT 3.61 10*6/uL (4.50-5.90); RED CELL DISTRI WIDTH 20.4 % (0-14.5)
[2020-06-13 19:34] LABS: ARTERIAL BLOOD GAS PH 7.463 (7.35-7.45)
[2020-06-14] VITALS: BP 129/68
[2020-06-14 04:00] VITALS: BP 118/54
[2020-06-14 05:45] LABS: ALBUMIN 3.6 gm/dl (3.1-4.5)
[2020-06-14 05:47] LABS: CREATININE 1.71 mg/dL (0.70-1.30); TOTAL PROTEIN 6.8 gm/dL (6.4-8.2)
[2020-06-14 05:50] LABS: POTASSIUM 2.8 mmol/L (3.5-5.1)
[2020-06-14 06:04] LABS: BASO # 0.1 10*3/uL (0.0-0.1); BASO % 0.4 % (0.0-1.0); EOS # 0.2 10*3/uL (0.0-0.4); EOS % 1.5 % (1.0-4.0); HEMATOCRIT 28.7 % (42.0-52.0); LYMPH # 0.6 10*3/uL (1.3-4.4); LYMPH % 4.8 % (27.0-41.0); MEAN CELL VOLUME 84.4 fl (80.0-94.0); MEAN CORPUSCULAR HGB 23.2 pg (27.0-31.0); MEAN CORPUSCULAR HGB CONC 27.5 g/dl (33.0-37.0); MEAN PLATELET VOLUME 10.5 fl (9.6-12.3); MONO # 1.3 10*3/uL (0.1-1.0); NEUT # 9.9 10*3/uL (2.3-7.9); NEUT % 81.8 % (47.0-73.0); NUCLEATED RED BLOOD CELL 0.1 10*3/uL (0.0-0.0); NUCLEATED RED BLOOD CELL 0.5 % (0.0-0.0); PLATELET COUNT AUTOMATED 294 10*3/uL (130-400); RED CELL DISTRI WIDTH 20.6 % (0-14.5); WHITE BLOOD COUNT 12.1 10*3/uL (4.8-10.8)
[2020-06-14 08:00] VITALS: BP 129/63
[2020-06-14 09:12] LABS: ABG BASE EXCESS 11.5 mmol/L (-2.0-2.0); ARTERIAL BLOOD GAS PH 7.489 (7.35-7.45)
[2020-06-14 12:00] VITALS: BP 120/65
[2020-06-14 14:10] LABS: CREATININE 1.75 mg/dL (0.70-1.30); POTASSIUM 2.9 mmol/L (3.5-5.1)
[2020-06-14 14:39] LABS: ABG BASE EXCESS 10.2 mmol/L (-2.0-2.0); ARTERIAL BLOOD GAS PH 7.489 (7.35-7.45)
[2020-06-14 16:00] VITALS: BP 122/60
[2020-06-14 20:00] VITALS: BP 111/54
[2020-06-14 20:55] LABS: CREATININE 1.72 mg/dL (0.70-1.30); POTASSIUM 2.9 mmol/L (3.5-5.1)
[2020-06-15] VITALS: BP 110/66
[2020-06-15 04:00] VITALS: BP 96/58
[2020-06-15 06:27] LABS: BASO % 0.4 % (0.0-1.0); EOS # 0.4 10*3/uL (0.0-0.4); EOS % 3.7 % (1.0-4.0); HEMATOCRIT 28.6 % (42.0-52.0); LYMPH # 0.6 10*3/uL (1.3-4.4); LYMPH % 5.5 % (27.0-41.0); MEAN CELL VOLUME 86.9 fl (80.0-94.0); MEAN CORPUSCULAR HGB 23.4 pg (27.0-31.0); MEAN CORPUSCULAR HGB CONC 26.9 g/dl (33.0-37.0); MONO # 1.2 10*3/uL (0.1-1.0); MONO % 12.2 % (3.0-9.0); NEUT # 7.9 10*3/uL (2.3-7.9); NEUT % 77.9 % (47.0-73.0); NUCLEATED RED BLOOD CELL 0.2 % (0.0-0.0); PLATELET COUNT AUTOMATED 305 10*3/uL (130-400); RED BLOOD COUNT 3.29 10*6/uL (4.50-5.90); RED CELL DISTRI WIDTH 21.1 % (0-14.5); WHITE BLOOD COUNT 10.1 10*3/uL (4.8-10.8)
[2020-06-15 06:32] LABS: ALBUMIN 3.7 gm/dl (3.1-4.5); CREATININE 1.66 mg/dL (0.70-1.30); TOTAL PROTEIN 7.2 gm/dL (6.4-8.2)
[2020-06-15 08:00] VITALS: BP 122/47
[2020-06-15 08:17] LABS: ABG BASE EXCESS 12.7 mmol/L (-2.0-2.0); ARTERIAL BLOOD GAS PH 7.474 (7.35-7.45)
[2020-06-15 12:00] VITALS: BP 98/55
[2020-06-15 16:00] VITALS: BP 118/70
[2020-06-15 16:24] LABS: CREATININE 1.73 mg/dL (0.70-1.30); POTASSIUM 3.2 mmol/L (3.5-5.1)
[2020-06-15 20:00] VITALS: BP 119/97
[2020-06-15 21:20] LABS: CREATININE 1.78 mg/dL (0.70-1.30); POTASSIUM 3.6 mmol/L (3.5-5.1)
[2020-06-16] VITALS: BP 111/71
[2020-06-16 07:00] LABS: BASO # 0.1 10*3/uL (0.0-0.1); BASO % 0.4 % (0.0-1.0); EOS # 0.4 10*3/uL (0.0-0.4); EOS % 3.7 % (1.0-4.0); HEMATOCRIT 29.2 % (42.0-52.0); LYMPH # 0.7 10*3/uL (1.3-4.4); LYMPH % 5.8 % (27.0-41.0); MEAN CELL VOLUME 88.5 fl (80.0-94.0); MEAN CORPUSCULAR HGB 23.3 pg (27.0-31.0); MEAN CORPUSCULAR HGB CONC 26.4 g/dl (33.0-37.0); MEAN PLATELET VOLUME 10.4 fl (9.6-12.3); MONO # 1.2 10*3/uL (0.1-1.0); MONO % 10.7 % (3.0-9.0); NEUT # 8.9 10*3/uL (2.3-7.9); NUCLEATED RED BLOOD CELL 0.2 % (0.0-0.0); PLATELET COUNT AUTOMATED 313 10*3/uL (130-400); RED CELL DISTRI WIDTH 21.4 % (0-14.5); WHITE BLOOD COUNT 11.3 10*3/uL (4.8-10.8)
[2020-06-16 07:26] LABS: POTASSIUM 2.9 mmol/L (3.5-5.1)
[2020-06-16 07:30] LABS: ALBUMIN 3.6 gm/dl (3.1-4.5); CREATININE 1.57 mg/dL (0.70-1.30); TOTAL PROTEIN 7.1 gm/dL (6.4-8.2)
[2020-06-16 08:00] VITALS: BP 125/71
[2020-06-16 12:00] VITALS: BP 108/65
[2020-06-16 16:00] VITALS: BP 119/90
[2020-06-16 20:00] VITALS: BP 134/73
[2020-06-17] VITALS: BP 110/64
[2020-06-17 06:43] LABS: BASO % 0.4 % (0.0-1.0); EOS # 0.3 10*3/uL (0.0-0.4); EOS % 2.7 % (1.0-4.0); HEMATOCRIT 26.9 % (42.0-52.0); LYMPH # 0.6 10*3/uL (1.3-4.4); LYMPH % 5.9 % (27.0-41.0); MEAN CELL VOLUME 87.3 fl (80.0-94.0); MEAN CORPUSCULAR HGB 23.4 pg (27.0-31.0); MEAN CORPUSCULAR HGB CONC 26.8 g/dl (33.0-37.0); MEAN PLATELET VOLUME 10.6 fl (9.6-12.3); MONO # 1.2 10*3/uL (0.1-1.0); MONO % 11.1 % (3.0-9.0); NEUT # 8.7 10*3/uL (2.3-7.9); NEUT % 79.6 % (47.0-73.0); NUCLEATED RED BLOOD CELL 0.2 % (0.0-0.0); PLATELET COUNT AUTOMATED 314 10*3/uL (130-400); RED BLOOD COUNT 3.08 10*6/uL (4.50-5.90); RED CELL DISTRI WIDTH 20.9 % (0-14.5); WHITE BLOOD COUNT 10.9 10*3/uL (4.8-10.8)
[2020-06-17 06:58] LABS: CREATININE 1.75 mg/dL (0.70-1.30); POTASSIUM 2.9 mmol/L (3.5-5.1)
[2020-06-17 08:00] VITALS: BP 112/68
[2020-06-17 12:00] VITALS: BP 100/72
[2020-06-17 16:00] VITALS: BP 128/68
[2020-06-17 20:00] VITALS: BP 105/88
[2020-06-18] VITALS: BP 112/71
[2020-06-18 06:53] LABS: BASO # 0.1 10*3/uL (0.0-0.1); BASO % 0.4 % (0.0-1.0); EOS # 0.3 10*3/uL (0.0-0.4); EOS % 2.5 % (1.0-4.0); HEMATOCRIT 27.8 % (42.0-52.0); LYMPH # 0.6 10*3/uL (1.3-4.4); LYMPH % 5.4 % (27.0-41.0); MEAN CELL VOLUME 85.5 fl (80.0-94.0); MEAN CORPUSCULAR HGB 23.4 pg (27.0-31.0); MEAN CORPUSCULAR HGB CONC 27.3 g/dl (33.0-37.0); MEAN PLATELET VOLUME 10.5 fl (9.6-12.3); MONO # 1.4 10*3/uL (0.1-1.0); MONO % 11.7 % (3.0-9.0); NEUT # 9.3 10*3/uL (2.3-7.9); NEUT % 79.5 % (47.0-73.0); NUCLEATED RED BLOOD CELL 0.2 % (0.0-0.0); PLATELET COUNT AUTOMATED 329 10*3/uL (130-400); RED BLOOD COUNT 3.25 10*6/uL (4.50-5.90); RED CELL DISTRI WIDTH 20.6 % (0-14.5); WHITE BLOOD COUNT 11.7 10*3/uL (4.8-10.8)
[2020-06-18 07:02] LABS: CREATININE 1.81 mg/dL (0.70-1.30); POTASSIUM 2.6 mmol/L (3.5-5.1)
[2020-06-18 08:00] VITALS: BP 155/69
[2020-06-18 12:00] VITALS: BP 126/62
[2020-06-18 16:00] VITALS: BP 112/71
[2020-06-18 20:00] VITALS: BP 109/86
[2020-06-19] VITALS: BP 113/66
[2020-06-19 06:14] LABS: BASO % 0.3 % (0.0-1.0); EOS # 0.2 10*3/uL (0.0-0.4); EOS % 1.5 % (1.0-4.0); HEMATOCRIT 27.9 % (42.0-52.0); LYMPH # 0.5 10*3/uL (1.3-4.4); LYMPH % 4.5 % (27.0-41.0); MEAN CELL VOLUME 85.1 fl (80.0-94.0); MEAN CORPUSCULAR HGB 22.9 pg (27.0-31.0); MEAN CORPUSCULAR HGB CONC 26.9 g/dl (33.0-37.0); MEAN PLATELET VOLUME 10.4 fl (9.6-12.3); MONO # 1.1 10*3/uL (0.1-1.0); MONO % 9.8 % (3.0-9.0); NEUT # 9.7 10*3/uL (2.3-7.9); NEUT % 83.4 % (47.0-73.0); NUCLEATED RED BLOOD CELL 0.2 % (0.0-0.0); PLATELET COUNT AUTOMATED 333 10*3/uL (130-400); RED BLOOD COUNT 3.28 10*6/uL (4.50-5.90); RED CELL DISTRI WIDTH 20.3 % (0-14.5); WHITE BLOOD COUNT 11.6 10*3/uL (4.8-10.8)
[2020-06-19 06:49] LABS: CREATININE 1.89 mg/dL (0.70-1.30); POTASSIUM 3.1 mmol/L (3.5-5.1)
[2020-06-19 08:00] VITALS: BP 121/64
[2020-06-19 12:00] VITALS: BP 126/74
[2020-06-19 16:00] VITALS: BP 110/69; BP 92/60
[2020-06-19 16:21] LABS: ABG BASE EXCESS 5.1 mmol/L (-2.0-2.0); ARTERIAL BLOOD GAS PH 7.282 (7.35-7.45)
[2020-06-19 20:00] VITALS: BP 112/73
[2020-06-20] VITALS: BP 120/78
[2020-06-20 07:14] LABS: BASO # 0.1 10*3/uL (0.0-0.1); BASO % 0.4 % (0.0-1.0); EOS # 0.1 10*3/uL (0.0-0.4); EOS % 0.6 % (1.0-4.0); HEMATOCRIT 27.8 % (42.0-52.0); LYMPH # 0.5 10*3/uL (1.3-4.4); LYMPH % 4.1 % (27.0-41.0); MEAN CORPUSCULAR HGB 23.6 pg (27.0-31.0); MEAN CORPUSCULAR HGB CONC 26.6 g/dl (33.0-37.0); MEAN PLATELET VOLUME 10.7 fl (9.6-12.3); MONO # 1.4 10*3/uL (0.1-1.0); MONO % 10.7 % (3.0-9.0); NEUT # 10.6 10*3/uL (2.3-7.9); NEUT % 83.8 % (47.0-73.0); NUCLEATED RED BLOOD CELL 0.1 10*3/uL (0.0-0.0); NUCLEATED RED BLOOD CELL 0.4 % (0.0-0.0); PLATELET COUNT AUTOMATED 369 10*3/uL (130-400); RED BLOOD COUNT 3.14 10*6/uL (4.50-5.90); RED CELL DISTRI WIDTH 20.2 % (0-14.5); WHITE BLOOD COUNT 12.7 10*3/uL (4.8-10.8)
[2020-06-20 07:16] LABS: MEAN CELL VOLUME 88.5 fl (80.0-94.0)
[2020-06-20 07:28] LABS: POTASSIUM 3.8 mmol/L (3.5-5.1)
[2020-06-20 07:32] LABS: CREATININE 2.33 mg/dL (0.70-1.30)
[2020-06-20 07:44] LABS: ABG BASE EXCESS 5.4 mmol/L (-2.0-2.0); ARTERIAL BLOOD GAS PH 7.324 (7.35-7.45)
[2020-06-20 08:00] VITALS: BP 82/70
[2020-06-20 12:00] VITALS: BP 126/88
[2020-06-20 16:00] VITALS: BP 101/70
[2020-06-20 20:00] VITALS: BP 105/73
[2020-06-21] VITALS: BP 94/73
[2020-06-21 04:00] VITALS: BP 122/85
[2020-06-21 05:25] LABS: ALBUMIN 3.6 gm/dl (3.1-4.5); CREATININE 2.36 mg/dL (0.70-1.30); POTASSIUM 3.1 mmol/L (3.5-5.1); TOTAL PROTEIN 6.9 gm/dL (6.4-8.2)
[2020-06-21 06:38] LABS: BASO % 0.4 % (0.0-1.0); EOS # 0.2 10*3/uL (0.0-0.4); EOS % 1.5 % (1.0-4.0); HEMATOCRIT 27.4 % (42.0-52.0); LYMPH # 0.6 10*3/uL (1.3-4.4); LYMPH % 5.8 % (27.0-41.0); MEAN CORPUSCULAR HGB 23.7 pg (27.0-31.0); MEAN CORPUSCULAR HGB CONC 26.6 g/dl (33.0-37.0); MEAN PLATELET VOLUME 10.8 fl (9.6-12.3); MONO # 1.1 10*3/uL (0.1-1.0); MONO % 10.8 % (3.0-9.0); NEUT # 8.2 10*3/uL (2.3-7.9); NEUT % 81.1 % (47.0-73.0); NUCLEATED RED BLOOD CELL 0.3 % (0.0-0.0); PLATELET COUNT AUTOMATED 341 10*3/uL (130-400); RED BLOOD COUNT 3.08 10*6/uL (4.50-5.90); WHITE BLOOD COUNT 10.1 10*3/uL (4.8-10.8)
[2020-06-21 08:00] VITALS: BP 118/94
[2020-06-21 12:00] VITALS: BP 108/62
[2020-06-21 20:00] VITALS: BP 127/87
[2020-06-22] VITALS: BP 125/63
[2020-06-22 07:28] LABS: BASO % 0.2 % (0.0-1.0); EOS # 0.1 10*3/uL (0.0-0.4); EOS % 1.1 % (1.0-4.0); HEMATOCRIT 25.9 % (42.0-52.0); LYMPH # 0.5 10*3/uL (1.3-4.4); LYMPH % 4.3 % (27.0-41.0); MEAN CORPUSCULAR HGB 23.1 pg (27.0-31.0); MEAN CORPUSCULAR HGB CONC 27.4 g/dl (33.0-37.0); MEAN PLATELET VOLUME 10.7 fl (9.6-12.3); MONO # 1.2 10*3/uL (0.1-1.0); MONO % 9.7 % (3.0-9.0); NEUT # 10.3 10*3/uL (2.3-7.9); NEUT % 84.1 % (47.0-73.0); NUCLEATED RED BLOOD CELL 0.2 % (0.0-0.0); PLATELET COUNT AUTOMATED 359 10*3/uL (130-400); RED BLOOD COUNT 3.07 10*6/uL (4.50-5.90); RED CELL DISTRI WIDTH 20.3 % (0-14.5); WHITE BLOOD COUNT 12.2 10*3/uL (4.8-10.8)
[2020-06-22 07:29] LABS: MEAN CELL VOLUME 84.4 fl (80.0-94.0)
[2020-06-22 07:39] LABS: ALBUMIN 3.4 gm/dl (3.1-4.5); CREATININE 2.02 mg/dL (0.70-1.30); POTASSIUM 2.9 mmol/L (3.5-5.1)
[2020-06-22 07:43] LABS: TOTAL PROTEIN 6.9 gm/dL (6.4-8.2)
[2020-06-22 08:00] VITALS: BP 113/61
[2020-06-22 12:00] VITALS: BP 112/79
[2020-06-22 16:00] VITALS: BP 115/53
[2020-06-22 20:00] VITALS: BP 133/78
[2020-06-23] VITALS (7 sets, daily range): BP systolic 80–128; BP diastolic 42–77
[2020-06-23 06:35] LABS: BASO % 0.3 % (0.0-1.0); EOS # 0.2 10*3/uL (0.0-0.4); EOS % 1.4 % (1.0-4.0); HEMATOCRIT 26.7 % (42.0-52.0); LYMPH # 0.4 10*3/uL (1.3-4.4); LYMPH % 4.1 % (27.0-41.0); MEAN CELL VOLUME 85.6 fl (80.0-94.0); MEAN CORPUSCULAR HGB 23.1 pg (27.0-31.0); MEAN PLATELET VOLUME 10.4 fl (9.6-12.3); MONO # 1.2 10*3/uL (0.1-1.0); MONO % 11.1 % (3.0-9.0); NEUT # 8.6 10*3/uL (2.3-7.9); NEUT % 82.7 % (47.0-73.0); PLATELET COUNT AUTOMATED 371 10*3/uL (130-400); RED BLOOD COUNT 3.12 10*6/uL (4.50-5.90); RED CELL DISTRI WIDTH 20.3 % (0-14.5); WHITE BLOOD COUNT 10.4 10*3/uL (4.8-10.8)
[2020-06-23 06:51] LABS: ALBUMIN 3.4 gm/dl (3.1-4.5); CREATININE 1.74 mg/dL (0.70-1.30); POTASSIUM 3.2 mmol/L (3.5-5.1); TOTAL PROTEIN 6.9 gm/dL (6.4-8.2)
[2020-06-24] VITALS: BP 114/75
[2020-06-24 06:57] LABS: BASO % 0.3 % (0.0-1.0); EOS # 0.2 10*3/uL (0.0-0.4); EOS % 1.4 % (1.0-4.0); HEMATOCRIT 26.8 % (42.0-52.0); LYMPH # 0.5 10*3/uL (1.3-4.4); LYMPH % 4.7 % (27.0-41.0); MEAN CELL VOLUME 85.6 fl (80.0-94.0); MEAN CORPUSCULAR HGB 22.7 pg (27.0-31.0); MEAN CORPUSCULAR HGB CONC 26.5 g/dl (33.0-37.0); MEAN PLATELET VOLUME 10.1 fl (9.6-12.3); MONO # 1.1 10*3/uL (0.1-1.0); MONO % 9.9 % (3.0-9.0); NEUT # 9.5 10*3/uL (2.3-7.9); NEUT % 83.3 % (47.0-73.0); NUCLEATED RED BLOOD CELL 0.3 % (0.0-0.0); PLATELET COUNT AUTOMATED 378 10*3/uL (130-400); RED BLOOD COUNT 3.13 10*6/uL (4.50-5.90); RED CELL DISTRI WIDTH 20.4 % (0-14.5); WHITE BLOOD COUNT 11.4 10*3/uL (4.8-10.8)
[2020-06-24 07:29] LABS: CREATININE 1.57 mg/dL (0.70-1.30); POTASSIUM 3.1 mmol/L (3.5-5.1)
[2020-06-24 08:00] VITALS: BP 120/70
[2020-06-24 12:00] VITALS: BP 107/77
[2020-06-24 16:00] VITALS: BP 119/70
[2020-06-24 20:00] VITALS: BP 110/66
[2020-06-25] VITALS: BP 115/70
[2020-06-25 07:18] LABS: BASO % 0.3 % (0.0-1.0); EOS # 0.3 10*3/uL (0.0-0.4); EOS % 2.2 % (1.0-4.0); HEMATOCRIT 26.3 % (42.0-52.0); LYMPH # 0.6 10*3/uL (1.3-4.4); LYMPH % 4.5 % (27.0-41.0); MEAN CELL VOLUME 86.5 fl (80.0-94.0); MEAN CORPUSCULAR HGB CONC 26.6 g/dl (33.0-37.0); MEAN PLATELET VOLUME 10.6 fl (9.6-12.3); MONO # 1.1 10*3/uL (0.1-1.0); MONO % 9.1 % (3.0-9.0); NEUT # 10.3 10*3/uL (2.3-7.9); NEUT % 83.6 % (47.0-73.0); PLATELET COUNT AUTOMATED 365 10*3/uL (130-400); RED BLOOD COUNT 3.04 10*6/uL (4.50-5.90); WHITE BLOOD COUNT 12.4 10*3/uL (4.8-10.8)
[2020-06-25 07:36] LABS: ALBUMIN 3.1 gm/dl (3.1-4.5); CREATININE 1.69 mg/dL (0.70-1.30); POTASSIUM 3.6 mmol/L (3.5-5.1); TOTAL PROTEIN 7.1 gm/dL (6.4-8.2)
[2020-06-25 08:00] VITALS: BP 91/62
[2020-06-25 12:00] VITALS: BP 102/68; BP 134/81
[2020-06-25 16:00] VITALS: BP 112/74
[2020-06-25 20:00] VITALS: BP 108/65
[2020-06-26] VITALS: BP 108/79
[2020-06-26 04:00] VITALS: BP 137/68
[2020-06-26 07:22] LABS: BASO % 0.4 % (0.0-1.0); EOS # 0.2 10*3/uL (0.0-0.4); EOS % 2.3 % (1.0-4.0); HEMATOCRIT 25.9 % (42.0-52.0); LYMPH # 0.6 10*3/uL (1.3-4.4); LYMPH % 5.6 % (27.0-41.0); MEAN CELL VOLUME 85.2 fl (80.0-94.0); MEAN PLATELET VOLUME 10.5 fl (9.6-12.3); MONO # 1.1 10*3/uL (0.1-1.0); MONO % 10.7 % (3.0-9.0); NEUT # 7.9 10*3/uL (2.3-7.9); NEUT % 80.6 % (47.0-73.0); PLATELET COUNT AUTOMATED 414 10*3/uL (130-400); RED BLOOD COUNT 3.04 10*6/uL (4.50-5.90); WHITE BLOOD COUNT 9.9 10*3/uL (4.8-10.8)
[2020-06-26 07:51] LABS: CREATININE 1.85 mg/dL (0.70-1.30); POTASSIUM 3.8 mmol/L (3.5-5.1); TOTAL PROTEIN 7.2 gm/dL (6.4-8.2)
[2020-06-26 08:00] VITALS: BP 112/73
[2020-06-26 12:00] VITALS: BP 117/67
[2020-06-26 16:00] VITALS: BP 106/78
[2020-06-26 20:00] VITALS: BP 116/75
[2020-06-27] VITALS (9 sets, daily range): BP systolic 103–120; BP diastolic 60–85
[2020-06-27 07:04] LABS: HEMATOCRIT 24.6 % (42.0-52.0); MEAN CELL VOLUME 84.5 fl (80.0-94.0); MEAN CORPUSCULAR HGB CONC 27.2 g/dl (33.0-37.0); MEAN PLATELET VOLUME 10.3 fl (9.6-12.3); PLATELET COUNT AUTOMATED 426 10*3/uL (130-400); RED BLOOD COUNT 2.91 10*6/uL (4.50-5.90); RED CELL DISTRI WIDTH 19.9 % (0-14.5); WHITE BLOOD COUNT 11.4 10*3/uL (4.8-10.8)
[2020-06-27 07:35] LABS: ALBUMIN 3.1 gm/dl (3.1-4.5); CREATININE 1.61 mg/dL (0.70-1.30); POTASSIUM 3.8 mmol/L (3.5-5.1)
[2020-06-27 07:36] LABS: TOTAL PROTEIN 7.2 gm/dL (6.4-8.2)
[2020-06-27 07:59] LABS: BASOPHILS 2 % (0-1); BURR CELLS FEW; OVALOCYTES FEW; PLATELET SUFFICIENCY HIGH (NORMAL); POLYCHROMASIA SLIGHT; TOTAL CELLS COUNTED 100 #CELLS
[2020-06-27 12:01] LABS: BASO # 0.1 10*3/uL (0.0-0.1); BASO % 0.5 % (0.0-1.0); EOS # 0.2 10*3/uL (0.0-0.4); EOS % 1.8 % (1.0-4.0); HEMATOCRIT 26.3 % (42.0-52.0); LYMPH # 0.5 10*3/uL (1.3-4.4); LYMPH % 4.6 % (27.0-41.0); MEAN CELL VOLUME 83.2 fl (80.0-94.0); MEAN CORPUSCULAR HGB 23.1 pg (27.0-31.0); MEAN CORPUSCULAR HGB CONC 27.8 g/dl (33.0-37.0); MEAN PLATELET VOLUME 10.1 fl (9.6-12.3); MONO # 1.3 10*3/uL (0.1-1.0); NEUT # 8.8 10*3/uL (2.3-7.9); NEUT % 80.6 % (47.0-73.0); PLATELET COUNT AUTOMATED 411 10*3/uL (130-400); RED BLOOD COUNT 3.16 10*6/uL (4.50-5.90); RED CELL DISTRI WIDTH 19.3 % (0-14.5); WHITE BLOOD COUNT 10.9 10*3/uL (4.8-10.8)
[2020-06-28] VITALS: BP 113/70
[2020-06-28 07:13] LABS: BASO % 0.3 % (0.0-1.0); EOS # 0.1 10*3/uL (0.0-0.4); EOS % 0.6 % (1.0-4.0); HEMATOCRIT 27.3 % (42.0-52.0); LYMPH # 0.3 10*3/uL (1.3-4.4); LYMPH % 2.9 % (27.0-41.0); MEAN CELL VOLUME 83.7 fl (80.0-94.0); MEAN CORPUSCULAR HGB CONC 27.5 g/dl (33.0-37.0); MEAN PLATELET VOLUME 10.1 fl (9.6-12.3); MONO # 1.1 10*3/uL (0.1-1.0); MONO % 9.5 % (3.0-9.0); NEUT # 10.1 10*3/uL (2.3-7.9); NEUT % 86.1 % (47.0-73.0); PLATELET COUNT AUTOMATED 439 10*3/uL (130-400); RED BLOOD COUNT 3.26 10*6/uL (4.50-5.90); RED CELL DISTRI WIDTH 19.7 % (0-14.5); WHITE BLOOD COUNT 11.7 10*3/uL (4.8-10.8)
[2020-06-28 07:27] LABS: CREATININE 1.62 mg/dL (0.70-1.30); POTASSIUM 4.1 mmol/L (3.5-5.1)
[2020-06-28 08:00] VITALS: BP 109/83
[2020-06-28 12:00] VITALS: BP 123/73
[2020-06-28 16:00] VITALS: BP 104/63
[2020-06-28 20:00] VITALS: BP 125/85
[2020-06-28 22:19] LABS: BILIRUBIN Negative (Negative); BLOOD Negative (Negative); CLARITY Clear (Clear); COLOR Yellow (Yellow); GLUCOSE Negative (Negative); KETONE Negative (Negative); LEUKO ESTERASE 1+ (Negative); NITRITE Negative (Negative)
[2020-06-28 22:44] LABS: BACTERIA 1+; RBC 0-2 rbc/hpf (0-2)
[2020-06-29] VITALS (7 sets, daily range): BP systolic 100–126; BP diastolic 58–84
[2020-06-29 06:51] LABS: BASO % 0.3 % (0.0-1.0); EOS # 0.2 10*3/uL (0.0-0.4); EOS % 2.1 % (1.0-4.0); HEMATOCRIT 27.1 % (42.0-52.0); LYMPH # 0.5 10*3/uL (1.3-4.4); LYMPH % 5.2 % (27.0-41.0); MEAN CELL VOLUME 83.1 fl (80.0-94.0); MEAN CORPUSCULAR HGB CONC 27.7 g/dl (33.0-37.0); MONO # 1.1 10*3/uL (0.1-1.0); MONO % 10.7 % (3.0-9.0); NEUT # 8.3 10*3/uL (2.3-7.9); NEUT % 81.1 % (47.0-73.0); PLATELET COUNT AUTOMATED 436 10*3/uL (130-400); RED BLOOD COUNT 3.26 10*6/uL (4.50-5.90); RED CELL DISTRI WIDTH 19.7 % (0-14.5); WHITE BLOOD COUNT 10.3 10*3/uL (4.8-10.8)
[2020-06-29 07:18] LABS: CREATININE 1.54 mg/dL (0.70-1.30)
[2020-06-29] MEDS ORDERED: METOPROLOL SUCC50 M1 PO (12:00)
[2020-06-29] MEDS ORDERED: BUMETANIDE1 MG PO (12:00)
[2020-06-29] MEDS ORDERED: GABAPENTIN100 M2 PO (12:00)
[2020-06-29] MEDS ORDERED: AUGMENTIN 875875 MG PO (12:00)
[2020-06-29] MEDS ORDERED: KLOR-CON M2020 ME1 PO (12:00)
== END 2020-06-29 16:10 | disposition other institution (70) | DRG 853 ==
LOC: ED 19:53 → 5E 21:41 → EDHOLD 21:41 → 5E 06-02 17:22 → ICCU 06-08 10:47 → 4E 06-08 13:47 → ICCU 06-09 17:17 → 5E 06-15 18:09 → ICCU 06-20 14:34 → 5E 06-21 11:27
PROVIDERS: Hospitalist; Internal Medicine; Internal Medicine Critical Care Medicine; Internal Medicine Nephrology; Podiatrist; Registered Nurse; Social Worker Clinical; Student in an Organized Health Care Education/Training Program; ADMIT Internal Medicine; ATTEND Internal Medicine
PROC: 30233N1 Transfusion of Nonautologous Red Blood Cells into Peripheral Vein, Percutaneous Approach (ICD-10-PCS; 2020-05-31)
PROC: 5A0935A Assistance with Respiratory Ventilation, Less than 24 Consecutive Hours, High Flow/Velocity Cannula (ICD-10-PCS; 2020-05-31)
PROC: 5A0935A Assistance with Respiratory Ventilation, Less than 24 Consecutive Hours, High Flow/Velocity Cannula (ICD-10-PCS; 2020-06-01)
PROC: 5A09357 Assistance with Respiratory Ventilation, Less than 24 Consecutive Hours, Continuous Positive Airway Pressure (ICD-10-PCS; 2020-06-01)
PROC: 5A0935A Assistance with Respiratory Ventilation, Less than 24 Consecutive Hours, High Flow/Velocity Cannula (ICD-10-PCS; 2020-06-02)
PROC: 5A09357 Assistance with Respiratory Ventilation, Less than 24 Consecutive Hours, Continuous Positive Airway Pressure (ICD-10-PCS; 2020-06-02)
PROC: 5A0945A Assistance with Respiratory Ventilation, 24-96 Consecutive Hours, High Flow/Velocity Cannula (ICD-10-PCS; 2020-06-02)
PROC: 2W3RX2Z Immobilization of Left Lower Leg using Cast (ICD-10-PCS; 2020-06-02)
PROC: 2W3QX2Z Immobilization of Right Lower Leg using Cast (ICD-10-PCS; 2020-06-02)
PROC: 5A09357 Assistance with Respiratory Ventilation, Less than 24 Consecutive Hours, Continuous Positive Airway Pressure (ICD-10-PCS; 2020-06-04)
PROC: 5A09357 Assistance with Respiratory Ventilation, Less than 24 Consecutive Hours, Continuous Positive Airway Pressure (ICD-10-PCS; 2020-06-05)
PROC: 5A09357 Assistance with Respiratory Ventilation, Less than 24 Consecutive Hours, Continuous Positive Airway Pressure (ICD-10-PCS; 2020-06-06)
PROC: 5A09457 Assistance with Respiratory Ventilation, 24-96 Consecutive Hours, Continuous Positive Airway Pressure (ICD-10-PCS; 2020-06-06)
PROC: 5A1955Z Respiratory Ventilation, Greater than 96 Consecutive Hours (ICD-10-PCS; principal; 2020-06-08)
PROC: 0BH18EZ Insertion of Endotracheal Airway into Trachea, Via Natural or Artificial Opening Endoscopic (ICD-10-PCS; 2020-06-08)
PROC: 5A1955Z Respiratory Ventilation, Greater than 96 Consecutive Hours (ICD-10-PCS; 2020-06-08)
PROC: 03H733Z Insertion of Infusion Device into Right Brachial Artery, Percutaneous Approach (ICD-10-PCS; 2020-06-08)
PROC: B34HZZZ Ultrasonography of Right Upper Extremity Arteries (ICD-10-PCS; 2020-06-08)
PROC: 02HV33Z Insertion of Infusion Device into Superior Vena Cava, Percutaneous Approach (ICD-10-PCS; 2020-06-08)
PROC: B548ZZA Ultrasonography of Superior Vena Cava, Guidance (ICD-10-PCS; 2020-06-08)
PROC: 5A09357 Assistance with Respiratory Ventilation, Less than 24 Consecutive Hours, Continuous Positive Airway Pressure (ICD-10-PCS; 2020-06-14)
PROC: 5A09357 Assistance with Respiratory Ventilation, Less than 24 Consecutive Hours, Continuous Positive Airway Pressure (ICD-10-PCS; 2020-06-15)
PROC: 5A09357 Assistance with Respiratory Ventilation, Less than 24 Consecutive Hours, Continuous Positive Airway Pressure (ICD-10-PCS; 2020-06-16)
PROC: 5A09357 Assistance with Respiratory Ventilation, Less than 24 Consecutive Hours, Continuous Positive Airway Pressure (ICD-10-PCS; 2020-06-17)
PROC: BD1BYZZ Fluoroscopy of Mouth/Oropharynx using Other Contrast (ICD-10-PCS; 2020-06-17)
PROC: 5A09357 Assistance with Respiratory Ventilation, Less than 24 Consecutive Hours, Continuous Positive Airway Pressure (ICD-10-PCS; 2020-06-18)
PROC: 5A09357 Assistance with Respiratory Ventilation, Less than 24 Consecutive Hours, Continuous Positive Airway Pressure (ICD-10-PCS; 2020-06-19)
PROC: 5A09457 Assistance with Respiratory Ventilation, 24-96 Consecutive Hours, Continuous Positive Airway Pressure (ICD-10-PCS; 2020-06-19)
PROC: 5A09457 Assistance with Respiratory Ventilation, 24-96 Consecutive Hours, Continuous Positive Airway Pressure (ICD-10-PCS; 2020-06-21)
PROC: 5A0935A Assistance with Respiratory Ventilation, Less than 24 Consecutive Hours, High Flow/Velocity Cannula (ICD-10-PCS; 2020-06-22)
PROC: 5A09357 Assistance with Respiratory Ventilation, Less than 24 Consecutive Hours, Continuous Positive Airway Pressure (ICD-10-PCS; 2020-06-22)
PROC: 0JB70ZZ Excision of Back Subcutaneous Tissue and Fascia, Open Approach (ICD-10-PCS; 2020-06-22)
PROC: 5A09357 Assistance with Respiratory Ventilation, Less than 24 Consecutive Hours, Continuous Positive Airway Pressure (ICD-10-PCS; 2020-06-23)
PROC: 0JB70ZZ Excision of Back Subcutaneous Tissue and Fascia, Open Approach (ICD-10-PCS; 2020-06-23)
PROC: 5A0935A Assistance with Respiratory Ventilation, Less than 24 Consecutive Hours, High Flow/Velocity Cannula (ICD-10-PCS; 2020-06-24)
PROC: 5A09357 Assistance with Respiratory Ventilation, Less than 24 Consecutive Hours, Continuous Positive Airway Pressure (ICD-10-PCS; 2020-06-24)
PROC: 5A09357 Assistance with Respiratory Ventilation, Less than 24 Consecutive Hours, Continuous Positive Airway Pressure (ICD-10-PCS; 2020-06-25)
PROC: 5A0935A Assistance with Respiratory Ventilation, Less than 24 Consecutive Hours, High Flow/Velocity Cannula (ICD-10-PCS; 2020-06-26)
PROC: 5A09357 Assistance with Respiratory Ventilation, Less than 24 Consecutive Hours, Continuous Positive Airway Pressure (ICD-10-PCS; 2020-06-26)
PROC: 5A09357 Assistance with Respiratory Ventilation, Less than 24 Consecutive Hours, Continuous Positive Airway Pressure (ICD-10-PCS; 2020-06-27)
PROC: 5A0935A Assistance with Respiratory Ventilation, Less than 24 Consecutive Hours, High Flow/Velocity Cannula (ICD-10-PCS; 2020-06-28)
PROC: 5A09357 Assistance with Respiratory Ventilation, Less than 24 Consecutive Hours, Continuous Positive Airway Pressure (ICD-10-PCS; 2020-06-28)
PROC: 5A09357 Assistance with Respiratory Ventilation, Less than 24 Consecutive Hours, Continuous Positive Airway Pressure (ICD-10-PCS; 2020-06-29)
PROC: 0DB68ZX Excision of Stomach, Via Natural or Artificial Opening Endoscopic, Diagnostic (ICD-10-PCS; 2020-06-29)
DX: A41.9 Sepsis, unspecified organism (principal); L89.154 Pressure ulcer of sacral region, stage 4; I50.43 Acute on chronic combined systolic (congestive) and diastolic (congestive) heart failure; N17.0 Acute kidney failure with tubular necrosis; J96.21 Acute and chronic respiratory failure with hypoxia; I21.4 Non-ST elevation (NSTEMI) myocardial infarction; K29.71 Gastritis, unspecified, with bleeding; L03.116 Cellulitis of left lower limb; L03.115 Cellulitis of right lower limb; Z68.41 Body mass index [BMI] 40.0-44.9, adult; E11.52 Type 2 diabetes mellitus with diabetic peripheral angiopathy with gangrene; I48.21 Permanent atrial fibrillation; E87.0 Hyperosmolality and hypernatremia; D62 Acute posthemorrhagic anemia; E87.6 Hypokalemia; Z51.5 Encounter for palliative care; N18.32 Chronic kidney disease, stage 3b; F17.210 Nicotine dependence, cigarettes, uncomplicated; E88.09 Other disorders of plasma-protein metabolism, not elsewhere classified; E11.22 Type 2 diabetes mellitus with diabetic chronic kidney disease; K21.9 Gastro-esophageal reflux disease without esophagitis; E78.5 Hyperlipidemia, unspecified; E11.42 Type 2 diabetes mellitus with diabetic polyneuropathy; Z66 Do not resuscitate; E11.65 Type 2 diabetes mellitus with hyperglycemia; E66.01 Morbid (severe) obesity due to excess calories; I48.0 Paroxysmal atrial fibrillation; Z20.822 Contact with and (suspected) exposure to COVID-19; I12.9 Hypertensive chronic kidney disease with stage 1 through stage 4 chronic kidney disease, or unspecified chronic kidney disease; G47.33 Obstructive sleep apnea (adult) (pediatric); I45.81 Long QT syndrome; I25.5 Ischemic cardiomyopathy; E87.5 Hyperkalemia; B96.20 Unspecified Escherichia coli [E. coli] as the cause of diseases classified elsewhere; I25.10 Atherosclerotic heart disease of native coronary artery without angina pectoris; Z88.8 Allergy status to other drugs, medicaments and biological substances; I25.2 Old myocardial infarction; Z90.49 Acquired absence of other specified parts of digestive tract; Z95.1 Presence of aortocoronary bypass graft; Z95.5 Presence of coronary angioplasty implant and graft; Z82.49 Family history of ischemic heart disease and other diseases of the circulatory system; Z79.01 Long term (current) use of anticoagulants; Z82.3 Family history of stroke; Z83.3 Family history of diabetes mellitus; Z79.4 Long term (current) use of insulin; Z79.899 Other long term (current) drug therapy